=== PATIENT | female | born 1985 | race African-American/Black ===

== ENCOUNTER 2016-05-31 08:46 | Emergency (ER) | payer BC ==
--- NOTE | 2016-05-31 09:55 | ER Document Report ---
ED GI/ - General Chief Complaint: Pelvic Pain Stated Complaint: URINARY ISSUES/BACK PAIN Mode of Arrival: Ambulatory Information source: Patient Notes: Patient complains of left flank pain for the past 2 weeks with dark-colored urine. Patient states that pain wraps around to the sides of her abdomen. Patient states that she had an STD check 2 days ago which was normal but she did test positive for bacterial vaginosis. Patient is currently taking Flagyl. Patient does complain of nausea but denies any vomiting. Patient also complains of pressure with voiding. TRAVEL OUTSIDE OF THE [place] IN LAST 30 DAYS: No - HPI Patient complains to provider of: Flank pain, Pelvic pain Onset: Other - Flank pain 2 weeks, rating around to abdomen today Timing/Duration: Gradual Quality of pain: Achy Pain Level: 3 Location: Left flank Vaginal bleeding (Compared to normal period): None Sexual history: Active. denies: STD exposure Associated symptoms: Nausea, Other - Complains of pressure with voiding. denies : Diarrhea, Dizzy, Fever, Loss of appetite, Urinary hesitancy Exacerbated by: Movement Relieved by: Denies Similar symptoms previously: Yes Recently seen / treated by doctor: Yes - Related Data Allergies/Adverse Reactions: No Known Allergies Allergy (Verified 05/31/16 08:59) Past Medical History - General Information source: Patient Last Menstrual Period: 05/13/2016 - Social History Smoking Status: Never Smoker Chew tobacco use (# tins/day): No Frequency of alcohol use: Occasional Drug Abuse: None Occupation: food quality tester Family History: Hypertension Patient has suicidal ideation: No Patient has homicidal ideation: No - Medical History Medical History: Negative Pulmonary Medical History: Reports: Hx Asthma - with Renal/ Medical History: Denies: Hx Peritoneal Dialysis Past Surgical History: Reports: Hx Orthopedic Surgery - right ankle - Immunizations Immunizations up to date: Yes Hx Diphtheria, Pertussis, Tetanus Vaccination: No - unknown Review of Systems - Review of Systems Constitutional: Recent illness - Recently treated for bacterial vaginosis. denies: Fever EENT: No symptoms reported Cardiovascular: No symptoms reported. denies: Chest pain Respiratory: No symptoms reported. denies: Cough, Short of breath Gastrointestinal: Abdominal pain, Nausea. denies: Diarrhea, Vomiting Genitourinary: Dysuria - Pressure with voiding, Flank pain - Left flank Female Genitourinary: No symptoms reported Musculoskeletal: Back pain Skin: No symptoms reported Hematologic/Lymphatic: No symptoms reported Neurological/Psychological: No symptoms reported Physical Exam - Vital signs Vitals: Temp Pulse Resp BP Pulse Ox 98.1 F 57 L 20 132/85 H 98 05/31/16 08:55 05/31/16 08:55 05/31/16 08:55 05/31/16 08:55 05/31/16 08:55 - General General appearance: Appears well, Alert In distress: None Notes: Morbidly obese - HEENT Head: Normocephalic, Atraumatic Eyes: Normal Nasal: Normal Mouth/Lips: Normal Mucous membranes: Normal Neck: Normal, Supple - Respiratory Respiratory status: No respiratory distress Chest status: Nontender Breath sounds: Normal. No: Rales, Rhonchi, Stridor, Wheezing Chest palpation: Normal - Cardiovascular Rhythm: Regular Heart sounds: S1 appreciated, S2 appreciated Murmur: No - Abdominal Inspection: Morbidly Obese Distension: No distension Bowel sounds: Normal Tenderness: Nontender - Back Back: Tender - Lower lumbar paraspinal tenderness. No: CVA tenderness, Vertebra tenderness - Extremities General upper extremity: Normal inspection, Normal strength General lower extremity: Normal inspection, Normal strength - Neurological Neuro grossly intact: Yes Cognition: Normal [place] Coma Scale Eye Opening: Spontaneous [place] Coma Scale Verbal: Oriented [place] Coma Scale Motor: Obeys Commands [place] Coma Scale Total: 15 - Psychological Associated symptoms: Normal affect, Normal mood - Skin Skin Temperature: Warm Skin Moisture: Dry Skin Color: Normal Course - Vital Signs Vital signs: Temp Pulse Resp BP Pulse Ox 98.2 F 58 L 18 143/79 H 100 05/31/16 12:45 05/31/16 12:45 05/31/16 12:45 05/31/16 12:45 05/31/16 12:45 - Laboratory Result Diagrams: 05/31/16 09:57 05/31/16 09:57 Laboratory results interpreted by me: 05/31/16 11:14 Ur Leukocyte Esterase TRACE H Labs- Last Values WBC 8.8 10^3/uL (4.0-10.5) 05/31/16 09:57 RBC 4.49 10^6/uL (3.72-5.28) 05/31/16 09:57 Hgb 13.0 g/dL (12.0-15.5) 05/31/16 09:57 Hct 39.9 % (36.0-47.0) 05/31/16 09:57 MCV 89 fl (80-97) 05/31/16 09:57 MCH 29.0 pg (27.0-33.4) 05/31/16 09:57 MCHC 32.6 g/dL (32.0-36.0) 05/31/16 09:57 RDW 13.9 % (11.5-14.0) 05/31/16 09:57 Plt Count 270 10^3/uL (150-450) 05/31/16 09:57 Seg Neutrophils % 63.5 % (42-78) 05/31/16 09:57 Lymphocytes % 26.6 % (13-45) 05/31/16 09:57 Monocytes % 8.2 % (3-13) 05/31/16 09:57 Eosinophils % 1.5 % (0-6) 05/31/16 09:57 Basophils % 0.2 % (0-2) 05/31/16 09:57 Absolute Neutrophils 5.6 10^3/uL (1.7-8.2) 05/31/16 09:57 Absolute Lymphocytes 2.3 10^3/uL (0.5-4.7) 05/31/16 09:57 Absolute Monocytes 0.7 10^3/uL (0.1-1.4) 05/31/16 09:57 Absolute Eosinophils 0.1 10^3/uL (0.0-0.6) 05/31/16 09:57 Absolute Basophils 0.0 10^3/uL (0.0-0.2) 05/31/16 09:57 Sodium 140.6 mmol/L (137-145) 05/31/16 09:57 Potassium 4.4 mmol/L (3.6-5.0) 05/31/16 09:57 Chloride 102 mmol/L (98-107) 05/31/16 09:57 Carbon Dioxide 30 mmol/L (22-30) 05/31/16 09:57 Anion Gap 9 (5-19) 05/31/16 09:57 BUN 12 mg/dL (7-20) 05/31/16 09:57 Creatinine 0.94 mg/dL (0.52-1.25) 05/31/16 09:57 Est GFR ( Amer) > 60 (>60) 05/31/16 09:57 Est GFR (Non-Af Amer) > 60 (>60) 05/31/16 09:57 Glucose 97 mg/dL (75-110) 05/31/16 09:57 Calcium 9.1 mg/dL (8.4-10.2) 05/31/16 09:57 Total Bilirubin 0.5 mg/dL (0.2-1.3) 05/31/16 09:57 Direct Bilirubin 0.0 mg/dL (0.0-0.3) 05/31/16 09:57 AST 15 U/L (14-36) 05/31/16 09:57 ALT 28 U/L (9-52) 05/31/16 09:57 Alkaline Phosphatase 59 U/L (38-126) 05/31/16 09:57 Total Protein 7.4 g/dL (6.3-8.2) 05/31/16 09:57 Albumin 3.5 g/dL (3.5-5.0) 05/31/16 09:57 Serum HCG, Qual NEGATIVE (NEGATIVE) 05/31/16 09:57 Urine Color YELLOW 05/31/16 11:14 Urine Appearance CLEAR 05/31/16 11:14 Urine pH 6.0 (5.0-9.0) 05/31/16 11:14 Ur Specific [place] 1.011 05/31/16 11:14 Urine Protein NEGATIVE mg/dL (NEGATIVE) 05/31/16 11:14 Urine Glucose (UA) NEGATIVE mg/dL (NEGATIVE) 05/31/16 11:14 Urine Ketones NEGATIVE mg/dL (NEGATIVE) 05/31/16 11:14 Urine Blood NEGATIVE (NEGATIVE) 05/31/16 11:14 Urine Nitrite NEGATIVE (NEGATIVE) 05/31/16 11:14 Urine Bilirubin NEGATIVE (NEGATIVE) 05/31/16 11:14 Urine Urobilinogen NEGATIVE mg/dL (<2.0) 05/31/16 11:14 Ur Leukocyte Esterase TRACE (NEGATIVE) H 05/31/16 11:14 Squamous Epi Cells Auto 1 /HPF 05/31/16 11:14 Urine Mucus (Auto) RARE /LPF 05/31/16 11:14 Urine Ascorbic Acid NEGATIVE (NEGATIVE) 05/31/16 11:14 05/31/16 19:40 Discharge - Discharge Clinical Impression: Urinary symptom or sign Low back pain Qualifiers: Chronicity: acute Back pain laterality: bilateral Sciatica presence: without sciatica Qualified Code(s): M54.5 - Low back pain Condition: Stable Disposition: HOME, SELF-CARE Instructions: Low Back Pain ([facility]), Urinary Tract Infection ([facility]), Warm Packs ( [facility]), Antibiotic Therapy ([facility]), Pelvic Pain ([facility]) Additional Instructions: Return immediately for any new or worsening symptoms Followup with your primary care provider, call tomorrow to make a followup appointment Prescriptions: Hydrocodone/Acetaminophen [Bunch 5-325 Tablet] 1 each PO Q4 PRN #8 tablet PRN Reason: Ondansetron HCl [Zofran 4 mg Tablet] 1 - 2 tab PO Q6 PRN #15 tablet PRN Reason: Sulfamethoxazole/Trimethoprim [Bactrim Ds Tablet] 1 each PO BID #10 tablet Forms: Return to Work Referrals: [facility] [Provider Group] - Follow up as needed
[2016-05-31 10:22] LABS: ABSOLUTE EOSINOPHILS # (AUTO) 0.1 10^3/uL (0.0-0.6); ABSOLUTE LYMPHOCYTES (AUTO) 2.3 10^3/uL (0.5-4.7); ABSOLUTE MONOCYTES (AUTO) 0.7 10^3/uL (0.1-1.4); ABSOLUTE NEUT (AUTO) 5.6 10^3/uL (1.7-8.2); BASOPHILS % (AUTO) 0.2 % (0-2); EOSINOPHILS % (AUTO) 1.5 % (0-6); HEMATOCRIT 39.9 % (36.0-47.0); HGB HCT DIFFERENCE -0.9; LYMPHOCYTES % (AUTO) 26.6 % (13-45); MEAN CORPUSCULAR HGB CONC 32.6 g/dL (32.0-36.0); MEAN CORPUSCULAR VOLUME 89 fl (80-97); MONOCYTES % (AUTO) 8.2 % (3-13); RED BLOOD COUNT 4.49 10^6/uL (3.72-5.28); RED CELL DISTRIBUTION WIDTH 13.9 % (11.5-14.0); SEGMENTED NEUTROPHILS % (AUTO) 63.5 % (42-78); WHITE BLOOD COUNT 8.8 10^3/uL (4.0-10.5)
[2016-05-31 10:42] LABS: ALANINE AMINOTRANSFERASE 28 U/L (9-52); ALBUMIN 3.5 g/dL (3.5-5.0); ALKALINE PHOSPHATASE 59 U/L (38-126); ANION GAP 9 (5-19); ASPARTATE AMINO TRANSFERASE 15 U/L (14-36); BILIRUBIN,TOTAL 0.5 mg/dL (0.2-1.3); BLOOD UREA NITROGEN 12 mg/dL (7-20); CALCIUM 9.1 mg/dL (8.4-10.2); CARBON DIOXIDE 30 mmol/L (22-30); CHLORIDE 102 mmol/L (98-107); CREATININE RESULT 0.94 mg/dL (0.52-1.25); GLUCOSE 97 mg/dL (75-110); POTASSIUM 4.4 mmol/L (3.6-5.0); SODIUM 140.6 mmol/L (137-145); TOTAL PROTEIN 7.4 g/dL (6.3-8.2)
[2016-05-31 11:41] LABS: APPEARANCE,URINE CLEAR; BILIRUBIN,URINE NEGATIVE (NEGATIVE); GLUCOSE, URINE NEGATIVE (NEGATIVE); KETONES,URINE NEGATIVE (NEGATIVE); LEUKOCYTE ESTERASE,URINE TRACE (NEGATIVE); NITRITE,URINE NEGATIVE (NEGATIVE); PROTEIN,URINE NEGATIVE (NEGATIVE); URINE SPECIFIC GRAVITY 1.011; UROBILINOGEN,URINE NEGATIVE mg/dL (<2.0)
[2016-05-31 12:46] VITALS: BP 143/79
== END 2016-05-31 12:46 | disposition home or self-care (01) ==
LOC: ER 08:46
DX: R82.99 Other abnormal findings in urine (principal); M54.5 Low back pain; R10.2 Pelvic and perineal pain; R11.0 Nausea
CPT/HCPCS: 36415; 80053; 81001; 84703; 85025; 99284

== ENCOUNTER 2016-07-20 06:46 | Emergency (ER) | payer BC ==
[2016-07-20] MEDS ORDERED: ACETAMINOPHEN 325 MG TABLET PO ONE (08:16)
--- NOTE | 2016-07-20 08:18 | ER Document Report ---
ED General - General Chief Complaint: Abdominal Cramping Stated Complaint: HEADACHE Mode of Arrival: Ambulatory Information source: Patient Notes: 31-year-old female 6 para 2 proximally 6 weeks presents with bilateral pelvic cramping sensation without any bleeding. Patient has not had a confirmed ultrasound. Denies any nausea vomiting admits to frontal headache of 2 day duration not associated with any nausea or vomiting. Patient admits feels mildly dizzy when the headache occurs. Patient has not taken anything for the headache denies this being the worse headache of her life TRAVEL OUTSIDE OF THE [place] IN LAST 30 DAYS: No - HPI Onset: Other Onset/Duration: Intermittent Quality of pain: Achy, Cramping Severity: Mild Pain Level: 1 Associated symptoms: Headache Exacerbated by: Denies Relieved by: Denies Similar symptoms previously: No Recently seen / treated by doctor: No - Related Data Allergies/Adverse Reactions: No Known Allergies Allergy (Verified 07/20/16 07:14) Past Medical History - Social History Smoking Status: Never Smoker Cigarette use (# per day): No Chew tobacco use (# tins/day): No Smoking Education Provided: No Frequency of alcohol use: Occasional Drug Abuse: None Family History: Hypertension Patient has suicidal ideation: No Patient has homicidal ideation: No Pulmonary Medical History: Reports: Hx Asthma - with Renal/ Medical History: Denies: Hx Peritoneal Dialysis Past Surgical History: Reports: Hx Orthopedic Surgery - right ankle - Immunizations Immunizations up to date: Yes Hx Diphtheria, Pertussis, Tetanus Vaccination: No - unknown Review of Systems - Review of Systems Notes: REVIEW OF SYSTEMS: CONSTITUTIONAL : Denies fever, chills, or sweats. Denies recent illness. EENT: Denies eye, ear, throat, or mouth pain or symptoms. Denies nasal or sinus congestion or discharge. Denies throat, tongue, or mouth swelling or difficulty swallowing. CARDIOVASCULAR: Denies chest pain. Denies palpitations or racing or irregular heart beat. Denies ankle edema. RESPIRATORY: Denies cough, cold, or chest congestion. Denies shortness of breath, difficulty breathing, or wheezing. GASTROINTESTINAL: Denies abdominal pain or distention. Denies nausea, vomiting , or diarrhea. Denies blood in vomitus, stools, or per rectum. Denies black, tarry stools. Denies constipation. GENITOURINARY: Denies difficulty urinating, painful urination, burning, frequency, blood in urine, or discharge. FEMALE GENITOURINARY: Denies vaginal bleeding, heavy or abnormal periods, irregular periods. Denies vaginal discharge or odor. Admits to pelvic cramping MUSCULOSKELETAL: Denies back or neck pain or stiffness. Denies joint pain or swelling. SKIN: Denies rash, lesions or sores. HEMATOLOGIC : Denies easy bruising or bleeding. LYMPHATIC: Denies swollen, enlarged glands. NEUROLOGICAL: Admits to headache PSYCHIATRIC: Denies anxiety or stress. Denies depression, suicidal ideation, or homicidal ideation. ALL OTHER SYSTEMS REVIEWED AND NEGATIVE. Dictation was performed using [place] voice recognition software PHYSICAL EXAMINATION: GENERAL: Well-appearing, well-nourished and in no acute distress. HEAD: Atraumatic, normocephalic. EYES: Pupils equal round and reactive to light, extraocular movements intact, conjunctiva are normal. ENT: Nares patent, oropharynx clear without exudates. Moist mucous membranes. NECK: Normal range of motion, supple without lymphadenopathy LUNGS: Breath sounds clear to auscultation bilaterally and equal. No wheezes rales or rhonchi. HEART: Regular rate and rhythm without murmurs ABDOMEN: Soft, nontender, nondistended abdomen. No guarding, no rebound. No masses appreciated. Female : deferred Musculoskeletal: Normal range of motion, no pitting or edema. No cyanosis. NEUROLOGICAL: Cranial nerves grossly intact. Normal speech, normal gait. Normal sensory, motor exams PSYCH: Normal mood, normal affect. SKIN: Warm, Dry, normal turgor, no rashes or lesions noted. Physical Exam - Vital signs Vitals: Temp Pulse Resp BP Pulse Ox 98.4 F 66 16 138/64 H 100 07/20/16 07:03 07/20/16 07:03 07/20/16 07:03 07/20/16 07:03 07/20/16 07:03 Course - Re-evaluation Re-evalutation: 07/20/16 08:18 Patient will be sent for an ultrasound, is otherwise well-appearing no distress. A hCG Quant has been ordered as well for reevaluation purposes 07/20/16 12:01 Ultrasound is consistent with a 6 week . Patient will be discharged to follow-up with her own [employer] otherwise stable for discharge After performing a Medical Screening Examination, I estimate there is LOW risk for ACUTE APPENDICITIS, BOWEL OBSTRUCTION, ACUTE CHOLECYSTITIS, PERFORATED DIVERTICULITIS, INCARCERATED HERNIA, PANCREATITIS, PELVIC INFLAMMATORY DISEASE, PERFORATED ULCER, ECTOPIC , or TUBO-OVARIAN ABSCESS, thus I consider the discharge disposition reasonable. Also, there is no evidence or peritonitis , sepsis, or toxicity. The patient and I have discussed the diagnosis and risks , and we agree with discharging home with close follow-up with the understanding that symptoms and presentations can change. We also discussed returning to the Emergency Department immediately if new or worsening symptoms occur. We have discussed the symptoms which are most concerning (e.g., bloody stool, fever, changing or worsening pain, vomiting) that necessitate immediate return. - Vital Signs Vital signs: Temp Pulse Resp BP Pulse Ox 98.4 F 66 16 138/64 H 100 07/20/16 07:03 07/20/16 07:03 07/20/16 07:03 07/20/16 07:03 07/20/16 07:03 - Laboratory Laboratory results interpreted by me: 07/20/16 08:25 Beta HCG, Quant 24812.00 H - Diagnostic Test Radiology reviewed: Image reviewed, Reports reviewed Discharge - Discharge Clinical Impression: Pelvic pain affecting Headache Qualifiers: Headache type: unspecified Headache chronicity pattern: acute headache Intractability: not intractable Qualified Code(s): R51 - Headache Condition: Stable Disposition: HOME, SELF-CARE Instructions: Headache ([facility]) Referrals: JACQUES ZEPEDA MD [Primary Care Provider] - Follow up in 3-5 days
[2016-07-20 08:26] LABS: APPEARANCE,URINE CLEAR; BILIRUBIN,URINE NEGATIVE (NEGATIVE); GLUCOSE, URINE NEGATIVE (NEGATIVE); KETONES,URINE NEGATIVE (NEGATIVE); LEUKOCYTE ESTERASE,URINE NEGATIVE (NEGATIVE); NITRITE,URINE NEGATIVE (NEGATIVE); PROTEIN,URINE NEGATIVE (NEGATIVE); UROBILINOGEN,URINE NEGATIVE mg/dL (<2.0)
[2016-07-20 12:14] VITALS: BP 149/64
== END 2016-07-20 12:18 | disposition home or self-care (01) ==
LOC: ER 06:46
DX: R10.2 Pelvic and perineal pain (principal); R51 Headache; R10.9 Unspecified abdominal pain; R42 Dizziness and giddiness; Z3A.01 Less than 8 weeks gestation of pregnancy
CPT/HCPCS: 36415; 76817; 81001; 84702; 99284

== ENCOUNTER 2016-09-12 06:26 | Emergency (ER) | payer BC, MEDICAID ==
[2016-09-12] MEDS ORDERED: NORMAL SALINE 1000 ML 1,000 ML IV ONE (06:39)
--- NOTE | 2016-09-12 07:14 | ER Document Report ---
ED General - General Chief Complaint: Vag Bleeding, +preg <12wks Stated Complaint: CRAMPING AND VAGINAL BLEEDING 13 WKS Time Seen by Provider: 09/12/16 06:39 TRAVEL OUTSIDE OF THE [place] IN LAST 30 DAYS: No - HPI Patient complains to provider of: vaginal bleeding positive Notes: Patient states she is approximately 3 months coming in for vaginal bleeding. Patient states spotting last week increased spotting today. Patient is currently on Flagyl for bacterial infection we'll seen. Patient also states abdominal cramping. Patient is a G6 P 2 with one miscarriage and 2 . Patient denies any fevers chills nausea vomiting diarrhea - Related Data Allergies/Adverse Reactions: No Known Allergies Allergy (Verified 07/20/16 07:14) Past Medical History - Social History Smoking Status: Unknown if Ever Smoked Chew tobacco use (# tins/day): No Family History: Hypertension Patient has suicidal ideation: No Patient has homicidal ideation: No Pulmonary Medical History: Reports: Hx Asthma - with Renal/ Medical History: Denies: Hx Peritoneal Dialysis Past Surgical History: Reports: Hx Orthopedic Surgery - right ankle - Immunizations Immunizations up to date: Yes Hx Diphtheria, Pertussis, Tetanus Vaccination: No - unknown Review of Systems - Review of Systems Constitutional: No symptoms reported EENT: No symptoms reported Cardiovascular: No symptoms reported Respiratory: No symptoms reported Gastrointestinal: No symptoms reported Genitourinary: No symptoms reported Female Genitourinary: Vaginal bleeding Musculoskeletal: No symptoms reported Skin: No symptoms reported Hematologic/Lymphatic: No symptoms reported Neurological/Psychological: No symptoms reported -: Yes All other systems reviewed and negative Physical Exam - Vital signs Vitals: Temp Pulse Resp BP Pulse Ox 98.3 F 78 18 133/72 H 99 09/12/16 06:30 09/12/16 06:30 09/12/16 06:30 09/12/16 06:30 09/12/16 06:30 Interpretation: Normal - General General appearance: Appears well, Alert - HEENT Head: Normocephalic, Atraumatic Eyes: Normal Pupils: PERRL - Respiratory Respiratory status: No respiratory distress Chest status: Nontender Breath sounds: Normal Chest palpation: Normal - Cardiovascular Rhythm: Regular Heart sounds: Normal auscultation Murmur: No - Abdominal Inspection: Normal Distension: No distension Bowel sounds: Normal Tenderness: Nontender Organomegaly: No organomegaly - Back Back: Normal, Nontender - Extremities General upper extremity: Normal inspection, Nontender, Normal color, Normal ROM , Normal temperature General lower extremity: Normal inspection, Nontender, Normal color, Normal ROM , Normal temperature, Normal weight bearing. No: Lilliam's sign - Neurological Neuro grossly intact: Yes Cognition: Normal Orientation: AAOx4 [place] Coma Scale Eye Opening: Spontaneous [place] Coma Scale Verbal: Oriented [place] Coma Scale Motor: Obeys Commands [place] Coma Scale Total: 15 Speech: Normal Motor strength normal: LUE, RUE, LLE, RLE Sensory: Normal - Psychological Associated symptoms: Normal affect, Normal mood - Skin Skin Temperature: Warm Skin Moisture: Dry Skin Color: Normal Course - Re-evaluation Re-evalutation: 09/12/16 14:23 Patient's ultrasound shows IUP with a heart rate of 151. Patient will be discharged home follow-up with [facility]. Patient will be given paperwork to have a repeat beta hCG - Vital Signs Vital signs: Temp Pulse Resp BP Pulse Ox 98.1 F 73 16 144/82 H 100 09/12/16 11:42 09/12/16 11:42 09/12/16 11:42 09/12/16 11:42 09/12/16 11:42 - Laboratory Result Diagrams: 09/12/16 07:04 09/12/16 07:04 Laboratory results interpreted by me: 09/12/16 07:04 Glucose 111 H Albumin 3.4 L Beta HCG, Quant 60624.00 H Discharge - Discharge Clinical Impression: Vaginal bleeding in Qualifiers: Trimester: first trimester Qualified Code(s): O46.91 - Antepartum hemorrhage, unspecified, first trimester Condition: Good Disposition: HOME, SELF-CARE Instructions: Threatened Miscarriage ([facility]), Bleeding During Early ( [facility]) Additional Instructions: Your labwork today and ultrasound showed a normal . It is concerning that your bleeding. This may lead to miscarriage however at this time everything looks to be okay. I would highly recommend following up with your OB /AIRLINE DISPATCHER. You will need to have your blood redrawn in 48-72 hours. You may go to the outpatient laboratory testing area to have this performed. Forms: Follow-Up Laboratory Testing, Return to Work Referrals: ERWIN MOORE MD [Primary Care Provider] - Follow up as needed
[2016-09-12 07:22] LABS: ABSOLUTE BASOPHILS # (AUTO) 0.1 10^3/uL (0.0-0.2); ABSOLUTE EOSINOPHILS # (AUTO) 0.1 10^3/uL (0.0-0.6); ABSOLUTE LYMPHOCYTES (AUTO) 2.4 10^3/uL (0.5-4.7); ABSOLUTE MONOCYTES (AUTO) 0.6 10^3/uL (0.1-1.4); BASOPHILS % (AUTO) 0.8 % (0-2); EOSINOPHILS % (AUTO) 0.6 % (0-6); HEMATOCRIT 36.7 % (36.0-47.0); HEMOGLOBIN 12.1 g/dL (12.0-15.5); HGB HCT DIFFERENCE -0.4; LYMPHOCYTES % (AUTO) 23.9 % (13-45); MEAN CORPUSCULAR HEMOGLOBIN 29.4 pg (27.0-33.4); MEAN CORPUSCULAR HGB CONC 33.1 g/dL (32.0-36.0); MEAN CORPUSCULAR VOLUME 89 fl (80-97); MONOCYTES % (AUTO) 5.9 % (3-13); RED BLOOD COUNT 4.14 10^6/uL (3.72-5.28); RED CELL DISTRIBUTION WIDTH 13.7 % (11.5-14.0); SEGMENTED NEUTROPHILS % (AUTO) 68.8 % (42-78); WHITE BLOOD COUNT 10.2 10^3/uL (4.0-10.5)
[2016-09-12 07:35] LABS: ALANINE AMINOTRANSFERASE 34 U/L (9-52); ALBUMIN 3.4 g/dL (3.5-5.0); ALKALINE PHOSPHATASE 49 U/L (38-126); ANION GAP 9 (5-19); ASPARTATE AMINO TRANSFERASE 27 U/L (14-36); BILIRUBIN,DIRECT 0.2 mg/dL (0.0-0.4); BILIRUBIN,TOTAL 0.4 mg/dL (0.2-1.3); BLOOD UREA NITROGEN 9 mg/dL (7-20); CALCIUM 8.5 mg/dL (8.4-10.2); CARBON DIOXIDE 26 mmol/L (22-30); CHLORIDE 103 mmol/L (98-107); CREATININE RESULT 0.66 mg/dL (0.52-1.25); GLUCOSE 111 mg/dL (75-110); LIPASE 58.8 U/L (23-300); POTASSIUM 4.1 mmol/L (3.6-5.0); SODIUM 137.5 mmol/L (137-145); TOTAL PROTEIN 6.8 g/dL (6.3-8.2)
[2016-09-12 07:44] LABS: APPEARANCE,URINE SLIGHTLY-CLOUDY; BILIRUBIN,URINE NEGATIVE (NEGATIVE); GLUCOSE, URINE NEGATIVE (NEGATIVE); KETONES,URINE NEGATIVE (NEGATIVE); LEUKOCYTE ESTERASE,URINE NEGATIVE (NEGATIVE); NITRITE,URINE NEGATIVE (NEGATIVE); PROTEIN,URINE NEGATIVE (NEGATIVE); URINE SPECIFIC GRAVITY 1.024; UROBILINOGEN,URINE NEGATIVE mg/dL (<2.0)
[2016-09-12 11:54] VITALS: BP 144/82
== END 2016-09-12 11:45 | disposition home or self-care (01) ==
LOC: ER 06:26
DX: O46.91 Antepartum hemorrhage, unspecified, first trimester (principal); Z3A.12 12 weeks gestation of pregnancy
CPT/HCPCS: 99284; 96360; 86900; 86901; 36415; 84702; 83690; 85025; 80053; 81001; 76801; 93976; J7030

== ENCOUNTER 2016-10-15 06:20 | Emergency (ER) | payer BC, MEDICAID ==
--- NOTE | 2016-10-15 07:15 | ER Document Report ---
ED General - General Mode of Arrival: Ambulatory Information source: Patient TRAVEL OUTSIDE OF THE [place] IN LAST 30 DAYS: No - General Chief Complaint: Insect Bite Stated Complaint: INSECT BITE Time Seen by Provider: 10/15/16 07:03 Notes: Patient is a 31-year-old, 18 week , A2 M1, female presenting to the emergency department this morning concerned because she began hyperventilating when she arrived at work. Patient states she has no idea why she became short of breath and hyperventilating. Patient also states that she was bitten yesterday on her right foot while she was at the pool. Patient states that it caused her foot and leg to swell, but it has improved today. Patient also complains of tenderness and itching emergency bite area (LISA MARTINEZ) - Related Data Allergies/Adverse Reactions: No Known Allergies Allergy (Verified 07/20/16 07:14) Past Medical History - General Information source: Patient - Social History Smoking Status: Never Smoker Family History: Reviewed & Not Pertinent, Hypertension Patient has suicidal ideation: No Patient has homicidal ideation: No Pulmonary Medical History: Reports: Hx Asthma - with Past Surgical History: Reports: Hx Orthopedic Surgery - right ankle - Immunizations Immunizations up to date: Yes Hx Diphtheria, Pertussis, Tetanus Vaccination: No - unknown Review of Systems - Review of Systems Constitutional: No symptoms reported EENT: No symptoms reported Cardiovascular: No symptoms reported Respiratory: See HPI, Short of breath - "hyperventilation" Gastrointestinal: No symptoms reported Genitourinary: No symptoms reported Female Genitourinary: No symptoms reported Musculoskeletal: No symptoms reported Skin: See HPI, Other - "Bug Bite" Hematologic/Lymphatic: No symptoms reported Neurological/Psychological: No symptoms reported -: Yes All other systems reviewed and negative Physical Exam - General General appearance: Appears well, Alert - HEENT Head: Normocephalic, Atraumatic Eyes: Normal Pupils: PERRL - Respiratory Respiratory status: No respiratory distress Chest status: Nontender Breath sounds: Normal Chest palpation: Normal - Cardiovascular Rhythm: Regular Heart sounds: Normal auscultation Murmur: No - Abdominal Inspection: Gravid female, Morbidly Obese Tenderness: Nontender - Back Back: Normal, Nontender - Extremities General upper extremity: Normal inspection, Nontender Foot: Tender - Small tender area right dorsal foot which is raised, tender, and erythematous. - Neurological Neuro grossly intact: Yes Cognition: Normal Orientation: AAOx4 Genoveva Coma Scale Eye Opening: Spontaneous [place] Coma Scale Verbal: Oriented [place] Coma Scale Motor: Obeys Commands [place] Coma Scale Total: 15 Speech: Normal - Psychological Associated symptoms: Normal affect, Normal mood - Skin Skin Temperature: Warm Skin Moisture: Dry Skin Color: Other - See foot exam - Vital signs Vitals: Temp Pulse Resp BP Pulse Ox 98.1 F 80 16 134/73 H 98 10/15/16 06:31 10/15/16 06:31 10/15/16 06:31 10/15/16 06:31 10/15/16 06:31 Discharge - Discharge Clinical Impression: Hyperventilation Insect bite Qualifiers: Encounter type: initial encounter Qualified Code(s): W57.XXXA - Bitten or stung by nonvenomous insect and other nonvenomous arthropods, initial encounter Additional Instructions: Insect Sting: You've been stung by an insect. The venom can cause pain, redness, and swelling. Right after the sting, we sometimes use adrenaline to reduce the reaction to the venom. This also stops any allergic reaction. You should apply cold compresses, rest and elevate the affected part, and take antihistamines. A more severe, itchy red swelling sometimes develops the next day. This is a local allergic reaction to the venom. This local allergy isn't dangerous. We treat it with cortisone-type medicine and antihistamines. Sometimes we use antibiotics if we're worried about infection. If you develop a fever, chills, a red streak, or swollen glands in the area of the bite, infection may be starting. Return at once. Insect stings from the bee and hornet family may cause a severe allergic reaction. Symptoms include hoarseness, shortness of breath, general redness of the skin, general itching, or lightheadedness. If any of these symptoms occur, you'll be treated with adrenalin and cortisone-like steroids. You should carry an "Anaphylaxis Kit" with you in the summer months so you can administer these medications to yourself before getting emergency medical care. Hyperventilation: You MAY have had an episode of hyperventilation. The symptoms occur because rapid breathing changes the body's chemical balance. Hyperventilation causes dizziness, numbness (particularly of the hands and face), chest pain, muscle spasms, and anxiety. Once an episode begins, it's extremely difficult to control the "need" to breathe rapidly. Hyperventilation may be provoked by drug effects, nausea, or illness, but is often due to anxiety. If no specific cause for the problem was found, treatment for anxiety may be necessary. Once the chemical changes have occurred, the hyperventilation is likely to recur. If you feel the symptoms again, rebreathe your air with a paper bag for several minutes. Sometimes hyperventilation is a symptom of an underlying metabolic or lung problem. If new symptoms develop (such as productive cough, fever, or chest pain), or if you are unable to get relief with rebreathing your exhaled air, call the physician. TRY BENADRYL CREAM ON THE FOOT FOR ITCHING. FOLLOW UP WITH YOUR DOCTOR IF ANY SIGNS OF INFECTION. RETURN TO THE EMERGENCY ROOM IF ANY NEW OR WORSENING SYMPTOMS. Scribe Attestation: 10/15/16 07:17 I personally performed the services described in the documentation, reviewed and edited the documentation which was dictated to the scribe in my presence, and it accurately records my words and actions. (JONATHAN CORREA)
[2016-10-15 07:28] VITALS: BP 131/88
== END 2016-10-15 07:29 | disposition home or self-care (01) ==
LOC: ER 06:20
DX: O26.892 Other specified pregnancy related conditions, second trimester (principal); R06.4 Hyperventilation; O9A.212 Injury, poisoning and certain other consequences of external causes complicating pregnancy, second trimester; S90.861A Insect bite (nonvenomous), right foot, initial encounter; W57.XXXA Bitten or stung by nonvenomous insect and other nonvenomous arthropods, initial encounter; Z3A.18 18 weeks gestation of pregnancy
CPT/HCPCS: 99282

== ENCOUNTER 2016-10-27 09:31 | Emergency (ER) | payer BC, MEDICAID ==
[2016-10-27] MEDS ORDERED: ALBUTEROL SULFATE 0.083% NEB 2.5 MG/3 ML AMPUL NEB SCH (10:15)
--- NOTE | 2016-10-27 10:19 | ER Document Report ---
ED Respiratory Problem - General Chief Complaint: Sore Throat Stated Complaint: COLD SYMPTOMS Time Seen by Provider: 10/27/16 09:48 Mode of Arrival: Ambulatory Information source: Patient Notes: 31 year old female presents to ED for sore throat itchy eyes sore ears cough congestion dry mouth for about a week. She is 20 weeks and has been told she has proteinuria gestational diabetes and elevated blood pressure with this . She has a history of 6 para 2 1 miscarriage and 2 abortions. She also has a history of asthma when . TRAVEL OUTSIDE OF THE [place] IN LAST 30 DAYS: No - HPI Patient complains to provider of: Asthma, Short of breath Onset: Last week Duration: Continuous Initiating Event: URI Quality of pain: Achy Severity: Moderate Pain Level: 3 Context: Hx asthma Short of Breath: Mild Cough: Nonproductive Sputum amount: None Associated symptoms: Congestion, Cough, PND, Sinus pain/pressure. denies: Fever Similar symptoms previously: Yes Recently seen / treated by doctor: No - Related Data Allergies/Adverse Reactions: No Known Allergies Allergy (Verified 10/27/16 09:36) Past Medical History - General Information source: Patient - Social History Smoking Status: Never Smoker Cigarette use (# per day): No Chew tobacco use (# tins/day): No Smoking Education Provided: No Frequency of alcohol use: None Drug Abuse: None Lives with: Alone Family History: Arthritis, COPD, CVA, DM, Hyperlipidemia, Hypertension, Malignancy Patient has suicidal ideation: No Patient has homicidal ideation: No - Past Medical History Cardiac Medical History: Reports: Hx Hypertension Pulmonary Medical History: Reports: Hx Asthma - with EENT Medical History: Reports: None Endocrine Medical History: Reports: Hx Diabetes Mellitus Type 2 - gestational Renal/ Medical History: Reports: None Malignancy Medical History: Reports: None GI Medical History: Reports: None Musculoskeltal Medical History: Reports Hx Musculoskeletal Trauma Skin Medical History: Reports None Psychiatric Medical History: Reports: None Traumatic Medical History: Reports: Hx Fractures Infectious Medical History: Reports: None Past Surgical History: Reports: Hx Orthopedic Surgery - right ankle - Immunizations Immunizations up to date: Yes Hx Diphtheria, Pertussis, Tetanus Vaccination: No - unknown Review of Systems - Review of Systems Constitutional: Recent illness EENT: Nose discharge, Sinus discharge, Throat pain Cardiovascular: No symptoms reported Respiratory: Cough, Short of breath, Wheezing Gastrointestinal: No symptoms reported Genitourinary: No symptoms reported Female Genitourinary: No symptoms reported Musculoskeletal: No symptoms reported Skin: No symptoms reported Hematologic/Lymphatic: No symptoms reported Neurological/Psychological: No symptoms reported -: Yes All other systems reviewed and negative Physical Exam - Vital signs Vitals: Temp Pulse Resp BP Pulse Ox 98.3 F 98 20 112/74 99 10/27/16 09:36 10/27/16 09:36 10/27/16 09:36 10/27/16 09:36 10/27/16 09:36 Interpretation: Normal - General General appearance: Appears well, Alert - HEENT Head: Normocephalic, Atraumatic Eyes: Normal Pupils: PERRL Ears: Normal External canal: Normal Tympanic membrane: Normal Sinus: Normal Nasal: Purulent discharge, Swelling Mouth/Lips: Normal Mucous membranes: Normal Pharynx: Erythema, Post nasal drainage Neck: Normal - Respiratory Respiratory status: No respiratory distress Chest status: Nontender Breath sounds: Decreased air movement, Nonproductive cough Chest palpation: Normal - Cardiovascular Rhythm: Regular Heart sounds: Normal auscultation Murmur: No - Abdominal Inspection: Normal Distension: No distension Bowel sounds: Normal Tenderness: Nontender Organomegaly: No organomegaly - Back Back: Normal, Nontender - Extremities General upper extremity: Normal inspection, Nontender, Normal color, Normal ROM , Normal temperature General lower extremity: Normal inspection, Nontender, Normal color, Normal ROM , Normal temperature, Normal weight bearing. No: Lilliam's sign - Neurological Neuro grossly intact: Yes Cognition: Normal Orientation: AAOx4 Gen[place] Coma Scale Eye Opening: Spontaneous [place] Coma Scale Verbal: Oriented [place] Coma Scale Motor: Obeys Commands Genove[place] Coma Scale Total: 15 Speech: Normal Motor strength normal: LUE, RUE, LLE, RLE Sensory: Normal - Psychological Associated symptoms: Normal affect, Normal mood - Skin Skin Temperature: Warm Skin Moisture: Dry Skin Color: Normal Course - Re-evaluation Re-evalutation: 10/27/16 12:14 Dr. Lakhani concerning the patient's status at 20 weeks with the bronchospasms. She said the let patient know to follow-up or Wednesday at the [facility]. Patient was discharged home with albuterol inhaler after receiving albuterol and Atrovent in the emergency room. Lungs are now clear and patient states feels much better. - Vital Signs Vital signs: Temp Pulse Resp BP Pulse Ox 98.3 F 98 20 112/74 99 10/27/16 09:36 10/27/16 09:36 10/27/16 09:36 10/27/16 09:36 10/27/16 09:36 - Laboratory Laboratory results interpreted by me: 10/27/16 10:27 Urine Ascorbic Acid 40 H - Diagnostic Test Radiology reviewed: Image reviewed, Reports reviewed Discharge - Discharge Clinical Impression: URI (upper respiratory infection) Qualifiers: URI type: unspecified URI Qualified Code(s): J06.9 - Acute upper respiratory infection, unspecified Condition: Stable Disposition: HOME, SELF-CARE Additional Instructions: UPPER RESPIRATORY ILLNESS: You have a viral infection of the respiratory passages -- a "cold." This common infection causes nasal congestion, drainage, and often sore throat and cough. It is highly contagious. The disease usually lasts about 10 to 14 days. There is no "cure" for the viral infection -- it must run its course. If there is a complication, such as bacterial infection in the nose, sinuses, middle ear, or bronchial tubes, antibiotics may be required. The antibiotics won't affect the virus. Drink plenty of fluids. A humidifier may help. An expectorant medication or decongestant may make you more comfortable. Use acetaminophen or ibuprofen for fever or aches. See the doctor if fever persists over two days, if there is any significant worsening of your symptoms, or if you simply fail to improve as expected. BRONCHOSPASM: You have tightness in the bronchial tubes, called bronchospasm. This often occurs with bronchial infections. Allergies, inhaled chemicals, and polluted or cold air can also provoke bronchospasm. It's more likely in patients with asthma in the family. Emergency treatment of bronchospasm may include adrenaline shots or bronchodilator aerosol. You may feel lightheaded and have a rapid pulse for an hour or two. Rest and get plenty of fluids. At home, we'll treat you with a bronchodilator inhaler. Antibiotics and corticosteroids may be required for some patients. Until you recover, avoid chemical fumes, dusts, pollens, and exercising in very cold or dry air. If you smoke, stop now!! If you develop a fever, increased wheezing, chest pain, or severe shortness of breath, you should contact the doctor immediately. COUGH-SUPPRESSANT & EXPECTORANT MEDICATION: You are to use a cough medication as needed for relief of symptoms. This medicine is a combination of an expectorant (to make the mucous thinner and more easily "coughed up") and a cough suppressant (to reduce the frequency of coughing). The cough-suppressant medicine is related to narcotics. You may experience mild nausea and sleepiness. Some patients who are very sensitive to narcotics may have stomach pain from this medicine. Taking the medicine with food reduces these side effects. Do not drive or work with machinery until you know how this medicine affects you. The expectorant should have no side effects. Iodine-containing expectorants (such as organidin) should not be taken by persons with active thyroid disease unless approved by your doctor. Call the doctor if you develop shortness of breath, hives, rash, itching, lightheadedness, or severe nausea and vomiting. INHALED BRONCHODILATORS: You have received a treatment of and/or prescription for an inhaled bronchodilator -- a medication which stimulates the airways in the lung to dilate. This improves the flow of air in asthma, bronchitis, and emphysema. These medicines have some similarity to adrenaline, and can cause similar side effects: shakiness, racing heart, and a sense of nervousness. These side effects decrease with time. Contact your doctor if these side effects are severe. Do not over-use the medicine. Too-frequent use of the inhaler may make it ineffective. Call your doctor if the inhaler is not controlling your symptoms at the prescribed doses. USE OF ACETAMINOPHEN (Tylenol): Acetaminophen may be taken for pain relief or fever control. It's much safer than aspirin, offering a wider range of "safe" dosages. It is safe during . Some brand names are Tylenol, Panadol, Datril, Anacin 3, Tempra, and Liquiprin. Acetaminophen can be repeated every four hours. The following are maximum recommended dosages: >89 pounds or adults 650 mg to 900 mg Acetaminophen can be repeated every four hours. Maximum dose not to exceed 4000 mg a day. FOLLOW-UP CARE: If you have been referred to a physician for follow-up care, call the physician s office for an appointment as you were instructed or within the next two days. If you experience worsening or a significant change in your symptoms, notify the physician immediately or return to the Emergency Department at any time for re-evaluation. Prescriptions: Albuterol Sulfate [Proair HFA Inhalation Aerosol 8.5 gm MDI] 2 puff IH Q4H PRN # 1 mdi PRN Reason:
[2016-10-27 10:45] LABS: APPEARANCE,URINE CLEAR; BILIRUBIN,URINE NEGATIVE (NEGATIVE); GLUCOSE, URINE NEGATIVE (NEGATIVE); KETONES,URINE NEGATIVE (NEGATIVE); LEUKOCYTE ESTERASE,URINE NEGATIVE (NEGATIVE); NITRITE,URINE NEGATIVE (NEGATIVE); PROTEIN,URINE NEGATIVE (NEGATIVE); URINE SPECIFIC GRAVITY 1.021; UROBILINOGEN,URINE NEGATIVE mg/dL (<2.0)
[2016-10-27] MEDS ORDERED: IPRATROPIUM BROMIDE 0.02% NEB 0.5 MG/2.5 ML AMPUL NEB ONE (11:11)
--- NOTE | 2016-10-27 11:20 | RADIOLOGY REPORT (SQ) ---
EXAM DESCRIPTION: CHEST PA/LAT COMPLETED DATE/TIME: 10/27/2016 11:09 am REASON FOR STUDY: cough congestion COMPARISON: Two-view chest 04/07/2011 EXAM PARAMETERS: NUMBER OF VIEWS: two views TECHNIQUE: Digital Frontal and Lateral radiographic views of the chest acquired. RADIATION DOSE: NA LIMITATIONS: none FINDINGS: LUNGS AND PLEURA: No opacities, masses or pneumothorax. No pleural effusion. MEDIASTINUM AND HILAR STRUCTURES: No masses or contour abnormalities. HEART AND VASCULAR STRUCTURES: Heart normal size. No evidence for failure. BONES: No acute findings. HARDWARE: None in the chest. OTHER: No other significant finding. IMPRESSION: NO SIGNIFICANT RADIOGRAPHIC FINDING IN THE CHEST. TECHNICAL DOCUMENTATION: JOB ID: [id number] [employer]- All Rights Reserved
[2016-10-27 12:45] VITALS: BP 130/66
== END 2016-10-27 12:46 | disposition home or self-care (01) ==
LOC: ER 09:31
DX: O26.92 Pregnancy related conditions, unspecified, second trimester (principal); J06.9 Acute upper respiratory infection, unspecified; O24.419 Gestational diabetes mellitus in pregnancy, unspecified control; O14.92 Unspecified pre-eclampsia, second trimester; Z3A.20 20 weeks gestation of pregnancy
CPT/HCPCS: 94640; 99283; 87070; 87880; 82962; 81001; 71020; J3490

== ENCOUNTER 2016-11-11 15:43 | Outpatient (CLI) | payer BC, MEDICAID ==
[2016-11-11] MEDS ORDERED: RINGERS SOLUTION,LACTATED 1,000 ML IV ONE (16:04)
[2016-11-11] MEDS ORDERED: RINGERS SOLUTION,LACTATED 1,000 ML IV PRN (16:04)
[2016-11-11 16:38] LABS: ABSOLUTE BASOPHILS # (AUTO) 0.1 10^3/uL (0.0-0.2); ABSOLUTE EOSINOPHILS # (AUTO) 0.1 10^3/uL (0.0-0.6); ABSOLUTE LYMPHOCYTES (AUTO) 2.4 10^3/uL (0.5-4.7); ABSOLUTE MONOCYTES (AUTO) 0.8 10^3/uL (0.1-1.4); ABSOLUTE NEUT (AUTO) 8.4 10^3/uL (1.7-8.2); BASOPHILS % (AUTO) 0.6 % (0-2); EOSINOPHILS % (AUTO) 0.6 % (0-6); HEMATOCRIT 34.4 % (36.0-47.0); HEMOGLOBIN 11.2 g/dL (12.0-15.5); HGB HCT DIFFERENCE -0.8; LYMPHOCYTES % (AUTO) 20.3 % (13-45); MEAN CORPUSCULAR HEMOGLOBIN 28.7 pg (27.0-33.4); MEAN CORPUSCULAR HGB CONC 32.4 g/dL (32.0-36.0); MEAN CORPUSCULAR VOLUME 89 fl (80-97); MONOCYTES % (AUTO) 7.2 % (3-13); RED BLOOD COUNT 3.88 10^6/uL (3.72-5.28); RED CELL DISTRIBUTION WIDTH 13.7 % (11.5-14.0); SEGMENTED NEUTROPHILS % (AUTO) 71.3 % (42-78); WHITE BLOOD COUNT 11.7 10^3/uL (4.0-10.5)
[2016-11-11 16:55] LABS: ALANINE AMINOTRANSFERASE 35 U/L (9-52); ALBUMIN 3.7 g/dL (3.5-5.0); ALKALINE PHOSPHATASE 74 U/L (38-126); ANION GAP 10 (5-19); ASPARTATE AMINO TRANSFERASE 20 U/L (14-36); BILIRUBIN,DIRECT 0.3 mg/dL (0.0-0.4); BILIRUBIN,TOTAL 0.3 mg/dL (0.2-1.3); BLOOD UREA NITROGEN 10 mg/dL (7-20); CALCIUM 9.1 mg/dL (8.4-10.2); CARBON DIOXIDE 23 mmol/L (22-30); CHLORIDE 104 mmol/L (98-107); CREATININE RESULT 0.73 mg/dL (0.52-1.25); GLUCOSE 80 mg/dL (75-110); LDH 331 U/L (313-618); TOTAL PROTEIN 7.3 g/dL (6.3-8.2); URIC ACID 4.2 mg/dL (2.5-6.2)
[2016-11-11] MEDS ORDERED: ACETAMINOPHEN 325 MG TABLET ONE (17:19)
[2016-11-11 18:30] LABS: APPEARANCE,URINE CLEAR; BILIRUBIN,URINE NEGATIVE (NEGATIVE); GLUCOSE, URINE NEGATIVE (NEGATIVE); KETONES,URINE 80 mg/dL (NEGATIVE); LEUKOCYTE ESTERASE,URINE NEGATIVE (NEGATIVE); NITRITE,URINE NEGATIVE (NEGATIVE); PROTEIN,URINE NEGATIVE (NEGATIVE); URINE SPECIFIC GRAVITY 1.018; UROBILINOGEN,URINE NEGATIVE mg/dL (<2.0)
[2016-11-11 18:48] LABS: URINE BARBITURATES SCREEN NEGATIVE; URINE METHADONE SCREEN NEGATIVE; URINE PHENCYCLIDINE SCREEN NEGATIVE
[2016-11-11 18:52] LABS: URINE CREATININE 144.4 mg/dL (16-327); URINE PROTEIN 7.7 mg/dL (<12)
[2016-11-11 18:54] LABS: URINE OPIATES LOW UNCONFIRMED POSITIVE
== END 2016-11-11 18:45 | disposition home or self-care (01) ==
LOC: LC 15:43
PROVIDERS: ATTEND Student in an Organized Health Care Education/Training Program
DX: O26.892 Other specified pregnancy related conditions, second trimester (principal); E86.0 Dehydration; Z3A.22 22 weeks gestation of pregnancy
CPT/HCPCS: 36415; 80053; 80307; 81001; 82570; 83615; 84156; 84550; 85025

== ENCOUNTER → 2016-12-07 | Outpatient (CLI) | payer BC, MEDICAID ==
[2016-12-07 11:53] LABS: HEMATOCRIT 34.9 % (36.0-47.0); HEMOGLOBIN 11.7 g/dL (12.0-15.5); HGB HCT DIFFERENCE 0.2; MEAN CORPUSCULAR HEMOGLOBIN 29.7 pg (27.0-33.4); MEAN CORPUSCULAR HGB CONC 33.6 g/dL (32.0-36.0); MEAN CORPUSCULAR VOLUME 88 fl (80-97); RED BLOOD COUNT 3.95 10^6/uL (3.72-5.28); RED CELL DISTRIBUTION WIDTH 14.1 % (11.5-14.0); WHITE BLOOD COUNT 9.7 10^3/uL (4.0-10.5)
[2016-12-07 12:09] LABS: ASPARTATE AMINO TRANSFERASE 16 U/L (14-36); CREATININE RESULT 0.65 mg/dL (0.52-1.25); LDH 326 U/L (313-618); URIC ACID 4.3 mg/dL (2.5-6.2)
[2016-12-07 13:04] LABS: URINE CREATININE 74.9 mg/dL (16-327)
== END ==
LOC: OD 11:02
PROVIDERS: ATTEND Registered Nurse Women's Health Care, Ambulatory
DX: O14.90 Unspecified pre-eclampsia, unspecified trimester (principal)
CPT/HCPCS: 36415; 82565; 82570; 83615; 84156; 84450; 84550; 85027

== ENCOUNTER 2017-01-07 10:17 | Outpatient (CLI) | payer BC, MEDICAID ==
--- NOTE | 2017-01-07 11:50 | RADIOLOGY REPORT (SQ) ---
EXAM DESCRIPTION: U/S OB LIMITED COMPLETED DATE/TIME: 01/07/2017 11:39 am REASON FOR STUDY: IUP 30 wks pressure for cervical length COMPARISON: OB ultrasound 07/20/2016 TECHNIQUE: Limited transabdominal and endovaginal grayscale ultrasound for evaluation of specific re quested obstetrical parameters. LIMITATIONS: None. FINDINGS: CERVICAL LENGTH: 5.3 cm Closed. FHR: 162 beats per minute. PRESENTATION: Cephalic. OTHER: No other significant findings. IMPRESSION: LIMITED OBSTETRICAL ULTRASOUND WITH MEASURED PARAMETERS DELINEATED ABOVE. Trimester of : Third trimester - 28 weeks to delivery. TECHNICAL DOCUMENTATION: JOB ID: [id number] [employer]- All Rights Reserved
== END 2017-01-07 12:43 | disposition home or self-care (01) ==
LOC: LC 10:17
PROVIDERS: ATTEND Obstetrics & Gynecology
PROC: 4A1HXCZ Monitoring of Products of Conception, Cardiac Rate, External Approach (ICD-10-PCS; principal; 2017-01-07)
DX: O47.03 False labor before 37 completed weeks of gestation, third trimester (principal); Z3A.30 30 weeks gestation of pregnancy
CPT/HCPCS: 76815

== ENCOUNTER 2017-02-04 11:10 | Outpatient (CLI) | payer BC, MEDICAID ==
[2017-02-04] MEDS ORDERED: ONDANSETRON 4 MG TAB.RAPDIS PO ONE (11:13)
[2017-02-04] MEDS ORDERED: ONDANSETRON 4 MG TAB.RAPDIS ONE (11:20)
== END 2017-02-04 12:14 | disposition home or self-care (01) ==
LOC: LC 11:10
PROVIDERS: ATTEND Obstetrics & Gynecology
DX: O21.0 Mild hyperemesis gravidarum (principal); Z3A.34 34 weeks gestation of pregnancy
CPT/HCPCS: 59025; S0119

== ENCOUNTER 2017-02-08 09:34 | Outpatient (CLI) | payer BC, MEDICAID ==
--- NOTE | 2017-02-08 09:41 | Non Stress Test Report ---
Non Stress Test Datetime Report Generated by CPN: 02/08/2017 09:41 DEMOGRAPHIC Test Number: 1 EGA NST: 34.1 INDICATION Indication for Study: Ordered by Provider MONITORING Monitor Explained: Monitor Explained; Test Explained; Patient Verbalized Understanding Time on Monitor: 02/04/2017 11:20 Time off Monitor: 02/04/2017 12:10 NST Duration: 50 NST INTERVENTIONS NST Interventions: PO Hydration Physician Notified NST: Howard BABY A: [id number] BABY A Movement : Present Contraction Frequency : 0 FHR Baseline : 145 Accelerations : 15X15 Decelerations : None Variability : Moderate 6-25bpm NST Review: Meets Criteria for Reactive NST NST Review and Verified By : Timmy Olmedo RN NST Results: Reactive NST REPORT Report Trigger: Send Report
--- NOTE | 2017-02-08 11:08 | Non Stress Test Report ---
Non Stress Test Datetime Report Generated by CPN: 02/08/2017 11:07 DEMOGRAPHIC EGA NST: 34.5 VITAL SIGNS Temperature - NST: 98.1 Pulse - NST: 90 RESP - NST: 18 NBPSYS NST: 123 NBPDIA NST: 73 MONITORING Monitor Explained: Monitor Explained; Test Explained; Patient Verbalized Understanding Time on Monitor: 02/08/2017 09:52 Time off Monitor: 02/08/2017 11:00 NST Duration: 68 NST INTERVENTIONS NST Interventions: PO Hydration; Reposition Patient Physician Notified NST: J Solis CNM REVIEWED STRIP BABY A Movement : Present Contraction Frequency : x1 Accelerations : 15X15 Decelerations : None Variability : Moderate 6-25bpm NST Review: Meets Criteria for Reactive NST NST Review and Verified By : LETICIA BARCENAS, RN NST Results: Reactive NST REPORT Report Trigger: Send Report
== END 2017-02-08 11:03 | disposition home or self-care (01) ==
LOC: LC 09:34
PROVIDERS: ATTEND Obstetrics & Gynecology
DX: O47.9 False labor, unspecified (principal)
CPT/HCPCS: 59025

== ENCOUNTER → 2017-02-15 | Outpatient (CLI) | payer BC, MEDICAID ==
[2017-02-15 10:23] LABS: ABSOLUTE EOSINOPHILS # (AUTO) 0.1 10^3/uL (0.0-0.6); ABSOLUTE LYMPHOCYTES (AUTO) 2.4 10^3/uL (0.5-4.7); ABSOLUTE MONOCYTES (AUTO) 0.8 10^3/uL (0.1-1.4); ABSOLUTE NEUT (AUTO) 6.5 10^3/uL (1.7-8.2); BASOPHILS % (AUTO) 0.5 % (0-2); EOSINOPHILS % (AUTO) 0.9 % (0-6); HEMATOCRIT 32.9 % (36.0-47.0); HEMOGLOBIN 10.9 g/dL (12.0-15.5); HGB HCT DIFFERENCE -0.2; LYMPHOCYTES % (AUTO) 24.3 % (13-45); MEAN CORPUSCULAR HEMOGLOBIN 27.7 pg (27.0-33.4); MEAN CORPUSCULAR VOLUME 84 fl (80-97); MONOCYTES % (AUTO) 8.3 % (3-13); RED BLOOD COUNT 3.92 10^6/uL (3.72-5.28); RED CELL DISTRIBUTION WIDTH 14.9 % (11.5-14.0); WHITE BLOOD COUNT 9.8 10^3/uL (4.0-10.5)
[2017-02-15 10:52] LABS: ASPARTATE AMINO TRANSFERASE 17 U/L (14-36); CREATININE RESULT 0.66 mg/dL (0.52-1.25); LDH 329 U/L (313-618); URIC ACID 3.9 mg/dL (2.5-6.2)
== END ==
LOC: OD 09:42
PROVIDERS: ATTEND Obstetrics & Gynecology
DX: O16.9 Unspecified maternal hypertension, unspecified trimester (principal); R51 Headache
CPT/HCPCS: 36415; 82565; 83615; 84450; 84550; 85025

== ENCOUNTER 2017-02-18 16:01 | Outpatient (CLI) | payer BC, MEDICAID ==
--- NOTE | 2017-02-18 16:55 | Non Stress Test Report ---
Non Stress Test Datetime Report Generated by CPN: 02/18/2017 16:55 DEMOGRAPHIC EGA NST: 36.1 INDICATION Indication for Study: Ordered by Provider MONITORING Monitor Explained: Monitor Explained; Test Explained; Patient Verbalized Understanding Time on Monitor: 02/18/2017 16:17 Time off Monitor: 02/18/2017 16:46 NST Duration: 29 NST INTERVENTIONS NST Interventions: PO Hydration Physician Notified NST: J. Solis CNM BABY A: [id number] BABY A Movement : Present Contraction Frequency : 0 FHR Baseline : 135 Accelerations : 15X15 Decelerations : None Variability : Moderate 6-25bpm NST Review: Meets Criteria for Reactive NST NST Review and Verified By : V Monk RN NST Results: Reactive NST REPORT Report Trigger: Send Report
== END 2017-02-18 16:55 | disposition home or self-care (01) ==
LOC: LC 16:01
PROVIDERS: ATTEND Obstetrics & Gynecology
PROC: 4A1HXCZ Monitoring of Products of Conception, Cardiac Rate, External Approach (ICD-10-PCS; principal; 2017-02-18)
DX: Z34.93 Encounter for supervision of normal pregnancy, unspecified, third trimester (principal)
CPT/HCPCS: 59025

== ENCOUNTER 2017-03-08 09:47 | Inpatient (IN) | payer BC, MEDICAID ==
[2017-03-08 10:27] LABS: APPEARANCE,URINE CLOUDY; BILIRUBIN,URINE NEGATIVE (NEGATIVE); GLUCOSE, URINE NEGATIVE (NEGATIVE); KETONES,URINE TRACE mg/dL (NEGATIVE); LEUKOCYTE ESTERASE,URINE LARGE (NEGATIVE); NITRITE,URINE NEGATIVE (NEGATIVE); PROTEIN,URINE 30 mg/dL (NEGATIVE); URINE SPECIFIC GRAVITY 1.014; UROBILINOGEN,URINE NEGATIVE mg/dL (<2.0)
[2017-03-08 10:32] LABS: AMNISURE (ROM) NEGATIVE (NEGATIVE)
[2017-03-08 10:46] LABS: URINE BARBITURATES SCREEN NEGATIVE; URINE METHADONE SCREEN NEGATIVE; URINE OPIATES LOW NEGATIVE; URINE PHENCYCLIDINE SCREEN NEGATIVE
[2017-03-08] MEDS ORDERED: PENICILLIN G POTASSIUM 5,000,000 UNIT in DEXTROSE 5%-WATER 100 ML IV ONE (12:34)
[2017-03-08] MEDS ORDERED: OXYTOCIN/NORMAL SALINE 20 UNIT/1,000 ML RTUINJ IV PRN (12:34)
[2017-03-08] MEDS ORDERED: RINGERS SOLUTION,LACTATED 300 ML IV ONE (12:34)
[2017-03-08] MEDS ORDERED: DINOPROSTONE 10 MG VAGINAL INSERT.SR ONE (13:21)
[2017-03-08 13:31] LABS: ABSOLUTE EOSINOPHILS # (AUTO) 0.1 10^3/uL (0.0-0.6); ABSOLUTE LYMPHOCYTES (AUTO) 1.6 10^3/uL (0.5-4.7); ABSOLUTE MONOCYTES (AUTO) 0.7 10^3/uL (0.1-1.4); ABSOLUTE NEUT (AUTO) 6.4 10^3/uL (1.7-8.2); BASOPHILS % (AUTO) 0.5 % (0-2); EOSINOPHILS % (AUTO) 0.8 % (0-6); HEMOGLOBIN 10.7 g/dL (12.0-15.5); HGB HCT DIFFERENCE 0.1; LYMPHOCYTES % (AUTO) 18.5 % (13-45); MEAN CORPUSCULAR HEMOGLOBIN 27.8 pg (27.0-33.4); MEAN CORPUSCULAR HGB CONC 33.6 g/dL (32.0-36.0); MEAN CORPUSCULAR VOLUME 83 fl (80-97); MONOCYTES % (AUTO) 8.4 % (3-13); RED BLOOD COUNT 3.87 10^6/uL (3.72-5.28); SEGMENTED NEUTROPHILS % (AUTO) 71.8 % (42-78); WHITE BLOOD COUNT 8.9 10^3/uL (4.0-10.5)
[2017-03-08] MEDS: DINOPROSTONE 10 MG VAGINAL INSERT.SR PV PRN (13:31)
[2017-03-08] MEDS: RINGERS SOLUTION,LACTATED 1,000 ML IV PRN (13:32)
[2017-03-08 13:49] LABS: ALANINE AMINOTRANSFERASE 31 U/L (9-52); ALKALINE PHOSPHATASE 168 U/L (38-126); ANION GAP 9 (5-19); ASPARTATE AMINO TRANSFERASE 17 U/L (14-36); BILIRUBIN,DIRECT 0.2 mg/dL (0.0-0.4); BILIRUBIN,TOTAL 0.4 mg/dL (0.2-1.3); BLOOD UREA NITROGEN 5 mg/dL (7-20); CARBON DIOXIDE 25 mmol/L (22-30); CHLORIDE 106 mmol/L (98-107); CREATININE RESULT 0.61 mg/dL (0.52-1.25); GLUCOSE 93 mg/dL (75-110); LDH 305 U/L (313-618); POTASSIUM 4.3 mmol/L (3.6-5.0); SODIUM 140.3 mmol/L (137-145); TOTAL PROTEIN 6.1 g/dL (6.3-8.2); URIC ACID 4.2 mg/dL (2.5-6.2)
[2017-03-08] MEDS ORDERED: PENICILLIN G-K 5 MILLION UNIT VIAL IV ONE (14:00)
[2017-03-08] MEDS ORDERED: PENICILLIN G POTASSIUM 2,500,000 UNIT in DEXTROSE 5%-WATER 50 ML IV SCH (16:35)
[2017-03-08] MEDS ORDERED: PENICILLIN G-K 5 MILLION UNIT VIAL IV SCH (18:00)
[2017-03-08] MEDS ORDERED: ZOLPIDEM TARTRATE 5 MG TABLET PO ONE (21:37)
[2017-03-08] MEDS ORDERED: ZOLPIDEM TARTRATE 5 MG TABLET ONE (22:58)
[2017-03-09] MEDS ORDERED: MISOPROSTOL 0.1 MG TABLET ONE ×2 (01:07→05:12)
[2017-03-09] MEDS: RINGERS SOLUTION,LACTATED 1,000 ML IV PRN ×3 (01:11→06:36)
[2017-03-09] MEDS ORDERED: MISOPROSTOL 0.1 MG TABLET PO PRN (01:30)
[2017-03-09] MEDS: DINOPROSTONE 10 MG VAGINAL INSERT.SR PV PRN (01:40)
[2017-03-09] MEDS ORDERED: ONDANSETRON HCL INJ/PF 4 MG/2 ML SDV IV ONE (02:06)
[2017-03-09] MEDS ORDERED: NALBUPHINE HCL INJ 10 MG/1 ML AMPULE INJ ONE (04:54)
[2017-03-09] MEDS ORDERED: PROMETHAZINE HCL INJ 25 MG/1 ML VIAL IV ONE (04:54)
[2017-03-09] MEDS ORDERED: NALBUPHINE HCL INJ 10 MG/1 ML AMPULE ONE (04:58)
[2017-03-09] MEDS ORDERED: PROMETHAZINE HCL INJ 25 MG/1 ML VIAL ONE (04:58)
[2017-03-09] MEDS ORDERED: PENICILLIN G-K 5 MILLION UNIT VIAL ONE (05:47)
[2017-03-09] MEDS ORDERED: MISOPROSTOL 0.1 MG TABLET PO SCH (06:00)
[2017-03-09] MEDS ORDERED: MISOPROSTOL 0.2 MG TABLET ONE ×2 (06:13→07:59)
[2017-03-09] MEDS ORDERED: LIDOCAINE 1% INJ-PF (10 MG/ML) 30 ML SDV ONE ×2 (06:14→07:59)
[2017-03-09] MEDS ORDERED: OXYTOCIN/NORMAL SALINE 0 UNIT/0 ML RTUINJ ONE (06:14)
[2017-03-09] MEDS ORDERED: ONDANSETRON HCL INJ/PF 4 MG/2 ML SDV ONE (06:20)
[2017-03-09] MEDS ORDERED: OXYTOCIN/NORMAL SALINE 20 UNIT/1,000 ML RTUINJ ONE (07:59)
[2017-03-09] MEDS ORDERED: DIBUCAINE 1% OINTMENT 28 GM TP PRN (08:52)
[2017-03-09] MEDS ORDERED: GLYCERIN/WITCH HAZEL LEAF 1 EACH MED..PAD TP PRN (08:52)
[2017-03-09] MEDS ORDERED: MAGNESIUM HYDROXIDE SUSP 30 ML UDCUP PO PRN (08:52)
[2017-03-09] MEDS ORDERED: MEASLES,MUMPS&RUBELLA VACC/PF 0.5 ML VIAL SUBCUT PRN (08:52)
[2017-03-09] MEDS ORDERED: PROMETHAZINE HCL INJ 25 MG/1 ML VIAL IV PRN (08:52)
[2017-03-09] MEDS ORDERED: NA PHOS,M-B/NA PHOS,DI-BA (ADULT) 133 ML ENEMA PR PRN (08:52)
[2017-03-09] MEDS ORDERED: BENZOCAINE/MENTHOL AEROSOL SPRAY 56 ML TOP PRN (08:52)
[2017-03-09] MEDS ORDERED: OXYTOCIN/NORMAL SALINE 20 UNIT/1,000 ML RTUINJ IV PRN (08:52)
[2017-03-09] MEDS ORDERED: PROMETHAZINE HCL 25 MG TABLET PO PRN (08:52)
[2017-03-09] MEDS ORDERED: DIPHENHYDRAMINE HCL 25 MG CAPSULE PO PRN (08:52)
[2017-03-09] MEDS ORDERED: ACETAMINOPHEN 650 MG SUPP.RECT PR PRN (08:52)
[2017-03-09] MEDS ORDERED: PROMETHAZINE HCL 25 MG SUPP.RECT PR PRN (08:52)
[2017-03-09] MEDS ORDERED: DIPH/PERTUSS(ACELL)/TETANUS VAC/PF 0.5 ML SYR (>=10YO) IM PRN (08:52)
[2017-03-09] MEDS ORDERED: PSEUDOEPHEDRINE HCL 30 MG TABLET PO PRN (08:52)
--- NOTE | 2017-03-09 10:49 | Admission Physical ---
Datetime Report Generated by CPN: 03/09/2017 10:49 CURRENT ADMISSION Hx Assessment: The History has been Reviewed and is Current Chief Complaint: Other Chief Complaint Other: Sent from [facility] for nst, bpp 6, -2 for breathing movements Indication for Induction: Indicated by Testing Indication for Induction: Term, Intrauterine ; No Active Labor; Intact Membranes; Induction of Labor Admit Plan: Admit to Unit; Initiate Labor Induction Protocol ALLERGIES Medication Allergies: No Medication Allergies: No Known Allergies (03/08/2017) Medication Allergies: No Known Allergies (03/04/2017) Medication Allergies: No Known Allergies (02/18/2017) Medication Allergies: No Known Allergies (11/11/2016) Medication Allergies: No Known Allergies (10/27/2016) Latex: No Latex Allergies Food Allergies: denies Environmental Allergies: denies OBSTETRICAL HISTORY EDC: 03/17/2017 00:00 : 6 Para: 2 SAB: 1 IAB: 2 Livin Gestational Diabetes: Yes Rh Sensitization: No Incompetent Cervix: No JD: No Infertility: No ART Treatment: No Uterine Anomaly: No IUGR: No Hx Previous C/S: No Macrosomia: No Hx Loss/Stillborn: No PIH: No Hx : No Placenta Previa/Abruption: No Depression/PP Depression: No PTL/PROM: No Post Hemorrhage: No Current Procedures: Ultrasound Obstetrical History Comments: G1: 2001 EAB G2: 2003 EAB G3: 2003 9lbs 4oz G4: 2005 8 lbs 1 oz G5: 2015 SAB G6: 2016 current SEE RECORDS Alcohol: No Marijuana : No Cocaine: No Other Illicit Drugs: No Cigarettes: Never Smoker. [id number] MEDICAL HISTORY Diabetes: No Diabetes Type: Gestational Diabetes Blood Transfusion: No Pulmonary Disease (Asthma, TB): No Breast Disease: No Hypertension: No [employer] Surgery: No Heart Disease: No Hosp/Surgery: Yes Autoimmune Disorder: No Anesthetic Complications: No Kidney Disease: No Abnormal Pap Smear: Yes Neuro/Epilepsy: No Psychiatric Disorders: No Other Medical Diseases: No Hepatitis/Liver Disease: No Significant Family History: No Varicosities/Phlebitis: No Trauma/Violence : No Thyroid Dysfunction: No Medical History Comments: CHTN, proteinuria, right ankle surgery 2010, abnl pap 2000s INFECTIOUS HISTORY Gonorrhea: Yes Genital Herpes: No Chlamydia: Yes Tuberculosis: No Syphilis: No Hepatitis: No HIV/AIDS Exposure: No Rash or Viral Illness: No HPV: No Infectious History Comments: Gonorrhea, Chlamydia, Trich early 2000s PHYSICAL EXAM General: Normal HEENT: Normal Neurologic: Normal Thyroid: Deferred Heart: Normal Lungs: Normal Breast: Normal Back: Normal Abdomen: Normal Genitourinary Exam: Normal Extremities: Normal DTRs: Normal Pelvic Type: Adequate Physical Exam Comments: Morbidly obese, pelvis proven 9lbs 4 oz Vital Signs: Reviewed VAGINAL EXAM Dilatation: 1 Effacement: 20 Station: -3 Contraction Comments: rare MEMBRANES Membranes: Intact FETUS A EGA: 38.5 Monitoring: External US FHR- Baseline: 140 Variability: Moderate 6-25bpm Accelerations: Absent Decelerations: Variable FHR Category: Category II Estimated Weight (gm): 3800 Presentation: Vertex Admit Comment: NST non-reactive here, admit to L and D Hx: morbid obesity, type 2 dm vs. early gdm, on glyburide, non-compliant GBS +, pcn Cervidil for cervical ripening See record for complete medical/surgical hx PLANS FOR LABOR AND DELIVERY Labor and Delivery: None Pain Management: Epidural Feeding Preference: Formula Benefit of Breast Feed Discussed: Yes Circumcision: Yes INFORMED CONSENT Assignment: Jonathan Romero DO Signature: with User ID: [email or web address] : with User ID: [id number]
--- NOTE | 2017-03-09 10:57 | Delivery Summary ---
Del Sum A-C Datetime Report Generated by CPN: 03/09/2017 10:57 DELIVERY PERSONNEL DELIVERY PERSONNEL: [id number] Delivery Doctor:: Neetu Gould CNM Labor and Delivery Nurse:: Ginny Conway RN Labor and Delivery Nurse:: JUSTIN Merritt [employer]ident Response Specialist/[employer] WORKER: Lola BONNY Breaux II MATERNAL INFORMATION Delivery Anesthesia: None Medications After Delivery: Pitocin Bolus-Please Comment; Pitocin Drip 20 Units/1000ml NSS Estimated Blood Loss (ml): 200 Maternal Complications: Precipitous Labor (<3hrs) Provider Comments: care assumed of this 32yo female at 38w6d here for IOL due to CHTN and GDM. Pt. had one dose of antibiotics for pos. GBS and has an unknown time for SROM (somewhere around [phone] per RN). Pt. was complete and ready to push upon my arrival to [facility]. Pt. pushed x2 and went on to deliver a viable baby boy through nuchal and body cord. Baby to maternal abdomen and vigorous respiratory effort and cry with tactile stimulation. Cord allowed to stop pulsating, doubly clamped and then cut by pt (3vc noted and cord blood obtained). Placenta delivered spontaneously intact, fundus firm at u-2 large amount of blood and several small clots out. In and out catheter inserted and _200ml of urine out. Bleeding stable. Vaginal and perineal inspection revealed no lacerations. Nursery in room evaluating baby and mother remains in room stable. LABOR SUMMARY EDC: 03/17/2017 00:00 No. Babies in Womb: 1 Attempted: No Labor Anesthesia: IV Sedation LABOR INFORMATION Reason for Induction: Chronic Hypertension; Maternal Diabetes Reason for Induction- Other: Proteinuria, BPP 6/10 Onset of Labor: 03/09/2017 07:30 Complete Dilatation: 03/09/2017 07:59 Cervical Ripening Agents: Cervidil; Cytotec @ Oxytocin: N/A Group B Beta Strep: Positive Antibiotics # of Doses: 1 Antibiotics Time of Last Dose: 0600 Name of Antibiotic Given: PCN Steroids Given: None Reason Steroids Not Administered: Not Applicable MEMBRANES Membranes Rupture Method: Spontaneous Rupture of Membranes: 03/09/2017 07:30 Length of Rupture (hr): 0.70 Amniotic Fluid Color: Clear Amniotic Fluid Amount: Scant Amniotic Fluid Odor: Normal STAGES OF LABOR Stage 1 hr: 0 Stage 1 min: 29 Stage 2 hr: 0 Stage 2 min: 13 Stage 3 hr: 0 Stage 3 min: 5 Total Time in Labor hr: 0 Total Time in Labor min: 47 VAGINAL DELIVERY Episiotomy: None Laceration #1: None Laceration Extension #1: N/A Laceration Repair: Not Applicable Sponge Count Correct: Yes Sharps Count Correct: Yes CSECTION DELIVERY Primary Indication: N/A Secondary Indication: N/A CSection Incidence: N/A Labor: N/A Elective: N/A CSection Incision: N/A BABY A INFORMATION Delivery Date/Time: 03/09/2017 08:12 Method of Delivery: Vaginal Born in Route : No : N/A Forceps: N/A Vacuum Extraction: N/A Shoulder Dystocia : No PRESENTATION/POSITION BABY A Presentation: Cephalic Cephalic Presentation: Vertex Vertex Position: OA Breech Presentation: N/A PLACENTA INFORMATION BABY A Placenta Delivery Time : 03/09/2017 08:17 Placenta Method of Delivery: Spontaneous Placenta Status: Delivered SCORES BABY A Heart Rate 1 min: >100 bpm Resp Effort 1 min: Good Cry Reflex Irritability 1 min: Cough or Sneeze or Pulls Away Muscle Tone 1 min: Active Motion Color 1 min: Blue/Pale Resuscitation Effort 1 min: Tactile Stimulation SCORE 1 MIN: 8 Heart Rate 5 min: >100 bpm Resp Effort 5 min: Good Cry Reflex Irritability 5 min: Cough or Sneeze or Pulls Away Muscle Tone 5 min: Active Motion Color 5 min: Blue/Pale Resuscitation Effort 5 min: Tactile Stimulation SCORE 5 MIN: 8 INFANT INFORMATION BABY A Gestational Age at Delivery: 38.6 Gestational Status: Early Term- 37- 38.6 Weeks Outcome : Liveborn Infant Condition : Stable Sex: Male IDENTIFICATION BABY A Infant Verification Date/Time: 03/09/2017 08:23 ID Band Number: [id number] Mother's Name Verified: Yes Infant RN Verifying : Timmy Maxwell RN Additional Verifying Personnel: Dr. Lakhani WEIGHT/LENGTH BABY A Infant Birthweight (gm): 3190 Infant Weight (lb): 7 Infant Weight (oz): 1 Length (in): 19.50 Infant Length (cm): 49.53 CORD INFORMATION BABY A No. Cord Vessels: 3 Nuchal Cord- Other: body cord, arm cord Cord Blood Taken: Yes-For Eval (Mom's Blood Type - or O+) Infant Suction: None ASSESSMENT BABY A Complications: None Physical Findings at Delivery: Within Normal Limits Respirations: Grunting Skin to Skin: Yes Skin to Skin Time (min): 60 Carbide Powder Processor/ALS Called : No Care By: Cale Torres RN Transferred To: Remains with Mother BABY B INFORMATION : N/A SIGNATURES Assignment: Roxana Lakhani MD Signature: with User ID: [email or web address] : with User ID: [email or web address]
[2017-03-09] MEDS: DOCUSATE SODIUM 100 MG CAPSULE PO SCH ×2 (11:21→18:14)
[2017-03-09] MEDS: SENNOSIDES/DOCUSATE 8.6-50 MG 1 EACH TABLET PO SCH (11:21)
[2017-03-09] MEDS: FAMOTIDINE 20 MG TABLET PO SCH ×2 (11:21→22:04)
[2017-03-09] MEDS: PRENATAL VITAMIN W-O CA NO5/FE FUMARATE/FA CAPSULE PO SCH (11:21)
[2017-03-09] MEDS: FERROUS SULFATE 325 MG TABLET PO SCH ×2 (11:21→18:14)
[2017-03-09] MEDS: IBUPROFEN 800 MG TABLET PO SCH ×2 (13:50→21:27)
[2017-03-09] MEDS: ACETAMINOPHEN WITH CODEINE #3 TABLET PO PRN (19:42)
[2017-03-10] MEDS: ACETAMINOPHEN WITH CODEINE #3 TABLET PO PRN (02:06)
[2017-03-10] MEDS: IBUPROFEN 800 MG TABLET PO SCH ×3 (05:16→21:21)
[2017-03-10 07:47] LABS: HEMATOCRIT 31.7 % (36.0-47.0); HEMOGLOBIN 10.4 g/dL (12.0-15.5); HGB HCT DIFFERENCE -0.5; MEAN CORPUSCULAR HEMOGLOBIN 27.3 pg (27.0-33.4); MEAN CORPUSCULAR HGB CONC 32.7 g/dL (32.0-36.0); MEAN CORPUSCULAR VOLUME 83 fl (80-97); RED CELL DISTRIBUTION WIDTH 15.1 % (11.5-14.0); WHITE BLOOD COUNT 12.8 10^3/uL (4.0-10.5)
[2017-03-10] MEDS: SENNOSIDES/DOCUSATE 8.6-50 MG 1 EACH TABLET PO SCH (09:37)
[2017-03-10] MEDS: PRENATAL VITAMIN W-O CA NO5/FE FUMARATE/FA CAPSULE PO SCH (09:37)
[2017-03-10] MEDS: FERROUS SULFATE 325 MG TABLET PO SCH ×2 (09:37→18:11)
[2017-03-10] MEDS: DOCUSATE SODIUM 100 MG CAPSULE PO SCH ×2 (09:38→18:11)
[2017-03-10] MEDS: FAMOTIDINE 20 MG TABLET PO SCH ×2 (09:38→21:21)
--- NOTE | 2017-03-10 10:59 | PDOC PROGRESS REPORT ---
Subjective-OB Subjective: Post Delivery Day: 32 year old. Denies any needs at this time Doing well, no c/o, feeling good, ambulating, voiding, bottle feeding Physical Exam (OB) Vital Signs: Temp Pulse Resp BP Pulse Ox 97.8 F 70 18 132/85 H 99 03/10/17 08:52 03/10/17 08:52 03/10/17 08:52 03/10/17 08:52 03/10/17 08:52 Intake & Output 03/09/17 03/10/17 03/11/17 06:59 06:59 06:59 Weight 137 kg - Lochia Lochia Amount: Small 10-25 ml Lochia Color: Rubra/Red - Abdomen Description: Soft, Round Hernia Present: No Fundal Description: Firm, Midline Fundal Height: u/u - u/2 Objective-Diagnostic Laboratory: 03/10/17 07:08 03/08/17 13:19 03/10/17 07:08 WBC 12.8 H RBC 3.80 Hgb 10.4 L Hct 31.7 L MCV 83 MCH 27.3 MCHC 32.7 RDW 15.1 H Plt Count 256 Assessment and Plan(PN) - Assessment and Plan (1) Gestational diabetes mellitus Qualifiers: Gestational diabetes mellitus control: oral hypoglycemic-controlled Trimester: first trimester Qualified Code(s): O24.415 - Gestational diabetes mellitus in , controlled by oral hypoglycemic drugs Is this a current diagnosis for this admission?: Yes (2) Obesity complicating Qualifiers: Trimester: first trimester Qualified Code(s): O99.211 - Obesity complicating , first trimester Is this a current diagnosis for this admission?: Yes (3) Normal vaginal delivery Is this a current diagnosis for this admission?: Yes (4) GBS (group B Streptococcus carrier), +RV culture, currently Is this a current diagnosis for this admission?: Yes - Time Spent with Patient Time with patient: Less than 15 minutes Smoking Education Provided: Over 3 minutes Medications reviewed and adjusted accordingly: Yes - Disposition Anticipated Discharge: Home Within: within 48 hours
[2017-03-11] MEDS ORDERED: ACETAMINOPHEN WITH CODEINE #3 TABLET PO PRN (01:04)
[2017-03-11] MEDS: IBUPROFEN 800 MG TABLET PO SCH (05:09)
[2017-03-11 08:35] VITALS: BP 139/78
[2017-03-11] MEDS: SENNOSIDES/DOCUSATE 8.6-50 MG 1 EACH TABLET PO SCH (09:51)
[2017-03-11] MEDS: PRENATAL VITAMIN W-O CA NO5/FE FUMARATE/FA CAPSULE PO SCH (09:51)
[2017-03-11] MEDS: FERROUS SULFATE 325 MG TABLET PO SCH (09:51)
[2017-03-11] MEDS: DOCUSATE SODIUM 100 MG CAPSULE PO SCH (09:52)
--- NOTE | 2017-03-11 11:03 | PDOC DISCHARGE SUMMARY ---
Final Diagnosis Discharge Date: 03/11/17 - Final Diagnosis (1) Gestational diabetes mellitus Is this a current diagnosis for this admission?: Yes (2) Normal vaginal delivery Is this a current diagnosis for this admission?: Yes (3) Obesity complicating Is this a current diagnosis for this admission?: Yes Discharge Data - Discharge Medication Home Medications: Albuterol Sulfate [Proair HFA Inhalation Aerosol 8.5 gm MDI] 2 puff IH Q4H PRN # 1 mdi 10/27/16 No122/Iron/Folic Acid [ Multi Tablet] 1 tab PO DAILY 11/11/16 Reason(s) for Admission: Induction of Labor, Obstetric Complications, Other [facility]mission Note[facility] Procedures: NST, Management of Obstetric Complications Intrapartum Procedure(s): Spontaneous Vaginal Delivery - Diagnosis Test Laboratory: Temp Pulse Resp BP Pulse Ox 98.1 F 68 20 139/78 H 100 03/11/17 09:37 03/11/17 09:37 03/11/17 09:37 03/11/17 09:37 03/11/17 09:37 03/08/17 03/08/17 03/10/17 10:03 13:19 07:08 RBC 3.87 3.80 Hgb 10.7 L 10.4 L Hct 32.0 L 31.7 L Urine Opiates Screen NEGATIVE - Discharge information/Instructions Discharge Activity: Balance Activity w/Rest, Pelvic Rest, No tub bath Discharge Diet: Regular Disposition: HOME, SELF-CARE Follow up with: [facility] in: 4, Weeks
[2017-03-11] MEDS: FAMOTIDINE 20 MG TABLET PO SCH (12:41)
== END 2017-03-11 14:06 | disposition home or self-care (01) | DRG 774 ==
LOC: LC 09:47 → LR 12:42 → 2S 03-09 10:43
PROVIDERS: ADMIT Obstetrics & Gynecology; ATTEND Obstetrics & Gynecology
PROC: 4A1HXCZ Monitoring of Products of Conception, Cardiac Rate, External Approach (ICD-10-PCS; 2017-03-08)
PROC: 10E0XZZ Delivery of Products of Conception, External Approach (ICD-10-PCS; principal; 2017-03-09)
PROC: 3E0P7GC Introduction of Other Therapeutic Substance into Female Reproductive, Via Natural or Artificial Opening (ICD-10-PCS; 2017-03-09)
DX: O24.425 Gestational diabetes mellitus in childbirth, controlled by oral hypoglycemic drugs (principal); O10.92 Unspecified pre-existing hypertension complicating childbirth; Z68.42 Body mass index [BMI] 45.0-49.9, adult; O99.214 Obesity complicating childbirth; E66.01 Morbid (severe) obesity due to excess calories; O99.824 Streptococcus B carrier state complicating childbirth; O62.3 Precipitate labor; O69.82X0 Labor and delivery complicated by other cord entanglement, without compression, not applicable or unspecified; Z28.21 Immunization not carried out because of patient refusal; Z91.19 Patient's noncompliance with other medical treatment and regimen; Z3A.38 38 weeks gestation of pregnancy; Z37.0 Single live birth
CPT/HCPCS: 36415; 59025; 80053; 80307; 81005; 82962; 83615; 84112; 84550; 85025; 85027; 86592; 86850; 86900; 86901; 88307; J2300; J2405; J2540; J2550; J2590; J3490

== ENCOUNTER 2017-04-21 13:58 | Emergency (ER) | payer BC, MEDICAID ==
--- NOTE | 2017-04-21 15:54 | ER Document Report ---
ED Hand/Wrist Injury - General Chief Complaint: Wrist Pain Stated Complaint: WRIST/HAND PAIN Time Seen by Provider: 04/21/17 15:02 Mode of Arrival: Ambulatory Information source: Patient Notes: 32-year-old female presents to ED for complaint of left thumb and wrist pain for about 3 months. She states 3 months ago she stepped on it and she woke up it was numb and hurting. She states it is progressively gotten more painful since then. She states she has a 6-week-old baby at home and it is extremely painful to pick the baby up. She states she took naproxen 880 mg last night or for the 220 mg. TRAVEL OUTSIDE OF THE [place] IN LAST 30 DAYS: No - HPI Injury to: Wrist - Left, Thumb Onset: Other - 3 months Timing: Waxing and waning Quality of pain: Sharp Severity: Moderate Pain Level: 3 Context: Other - Pain no known injury - Related Data Allergies/Adverse Reactions: No Known Allergies Allergy (Verified 04/21/17 13:59) Past Medical History - General Information source: Patient - Social History Smoking Status: Never Smoker Cigarette use (# per day): No Chew tobacco use (# tins/day): No Smoking Education Provided: No Frequency of alcohol use: Occasional Drug Abuse: None Family History: Arthritis, COPD, CVA, DM, Hyperlipidemia, Hypertension, Malignancy Patient has suicidal ideation: No Patient has homicidal ideation: No - Past Medical History Cardiac Medical History: Reports: Hx Hypertension Pulmonary Medical History: Reports: Hx Asthma - with Endocrine Medical History: Reports: Hx Diabetes Mellitus Type 2 - gestational Renal/ Medical History: Denies: Hx Peritoneal Dialysis Musculoskeltal Medical History: Reports Hx Musculoskeletal Trauma Traumatic Medical History: Reports: Hx Fractures Past Surgical History: Reports: Hx Orthopedic Surgery - right ankle - Immunizations Immunizations up to date: Yes Hx Diphtheria, Pertussis, Tetanus Vaccination: No - unknown Review of Systems - Review of Systems Constitutional: No symptoms reported EENT: No symptoms reported Cardiovascular: No symptoms reported Respiratory: No symptoms reported Gastrointestinal: No symptoms reported Genitourinary: No symptoms reported Female Genitourinary: No symptoms reported Musculoskeletal: Other - Left wrist and thumb pain for about 3 months Skin: No symptoms reported Hematologic/Lymphatic: No symptoms reported Neurological/Psychological: No symptoms reported Physical Exam - Vital signs Vitals: Temp Pulse Resp BP Pulse Ox 98.4 F 73 16 144/85 H 99 04/21/17 14:08 04/21/17 14:08 04/21/17 14:08 04/21/17 14:08 04/21/17 14:08 Interpretation: Normal - General General appearance: Appears well, Alert - HEENT Head: Normocephalic, Atraumatic Eyes: Normal Pupils: PERRL - Respiratory Respiratory status: No respiratory distress Chest status: Nontender Breath sounds: Normal Chest palpation: Normal - Cardiovascular Rhythm: Regular Heart sounds: Normal auscultation Murmur: No - Abdominal Inspection: Normal Distension: No distension Bowel sounds: Normal Tenderness: Nontender Organomegaly: No organomegaly - Back Back: Normal, Nontender - Extremities General upper extremity: Normal inspection, Nontender, Normal color, Normal ROM , Normal temperature General lower extremity: Normal inspection, Normal color, Normal temperature, Normal weight bearing. No: Lilliam's sign Wrist: Tender, Axial load of thumb pain, Limited ROM - Due to pain. No: Ecchymosis, Instability, Navicular tenderness Hand: Tender - To left thumb, No evidence of human bite, No evidence of FB. No : Abrasion, Deformity, Dislocation, Ecchymosis, Instability, Laceration, Nail injury - Neurological Neuro grossly intact: Yes Cognition: Normal Orientation: AAOx4 [place] Coma Scale Eye Opening: Spontaneous [place] Coma Scale Verbal: Oriented [place] Coma Scale Motor: Obeys Commands [place] Coma Scale Total: 15 Speech: Normal Motor strength normal: LUE, RUE, LLE, RLE Sensory: Normal - Psychological Associated symptoms: Normal affect, Normal mood - Skin Skin Temperature: Warm Skin Moisture: Dry Skin Color: Normal Course - Re-evaluation Re-evalutation: 04/21/17 16:55 Discussed x-rays with patient and written reports given the patient and instructed to follow-up with orthopedics. Patient given prescription for naproxen for her pain and discomfort. - Vital Signs Vital signs: Temp Pulse Resp BP Pulse Ox 97.7 F 62 18 133/87 H 98 04/21/17 16:45 04/21/17 16:45 04/21/17 16:45 04/21/17 16:45 04/21/17 16:45 - Diagnostic Test Radiology reviewed: Image reviewed, Reports reviewed Discharge - Discharge Clinical Impression: Left wrist pain, Arthritis of left wrist Condition: Stable Disposition: HOME, SELF-CARE Additional Instructions: Arthritis Your symptoms are due to arthritis. Arthritis is an inflammation of the joints. There are many types -- osteoarthritis (due to "wear and tear"), auto- immmune arthritis (such as rheumatoid, lupus, Gustavo's, and others), and crystal -induced arthritis (such as gout and pseudogout). The physician's examination, combined with laboratory tests, will determine the cause of your arthritis. All types of arthritis are treated with antiinflammatory medications. Other medication may be required for special types of arthritis, or if your problem does not respond to the antiinflammatory medicine. Local warmth may be helpful. Move the involved joints through the full range of motion daily. Mild exercise is usually still possible for most persons with arthritis (ask your physician). Swimming provides good exercise without damaging the joints. Contact the physician if you are worsening in any way. Anti-Inflammatory Medication You have received a prescription for an antiinflammatory agent. This is an excellent, safe drug for pain control. In addition, it has potent antiinflammatory effects which are beneficial, especially in the treatment of injuries, arthritis, or tendonitis. It's best to take this medicine with food. Persons with ulcer disease or allergy to aspirin should notify their physician of this before taking this drug. Take the medication exactly as prescribed. Don't take additional doses unless instructed to do so by your doctor. If you develop wheezing, shortness of breath, hives, faintness, stomach pain, vomiting, or dark black stools, return for re-evaluation at once. FOLLOW-UP CARE: If you have been referred to a physician for follow-up care, call the physician s office for an appointment as you were instructed or within the next two days. If you experience worsening or a significant change in your symptoms, notify the physician immediately or return to the Emergency Department at any time for re-evaluation. Prescriptions: Naproxen [Naprosyn] 500 mg PO BIDP PRN #20 tablet PRN Reason: Forms: Elevated Blood Pressure, Return to Work Referrals: DOMITILA HARDY DO [ACTIVE STAFF] - Follow up as needed
--- NOTE | 2017-04-21 16:03 | RADIOLOGY REPORT (SQ) ---
EXAM DESCRIPTION: WRIST LEFT 3 VIEWS; FINGER LEFT COMPLETED DATE/TIME: 04/21/2017 3:38 pm REASON FOR STUDY: pain to thumb and wrist getting worse COMPARISON: No previous left hand or wrist imaging NUMBER OF VIEWS: Three views left thumb Three views left wrist TECHNIQUE: AP, lateral, and oblique radiographic images acquired of the left wrist. AP, lateral, and oblique views of the left thumb LIMITATIONS: None. FINDINGS: LEFT THUMB: MINERALIZATION: Normal. BONES: There is a nonacute healed left thumb distal tuft fracture. Bones of the left thumb are other aguilar unremarkable. No significant joint space narrowing or widening at the 1st carpometacarpal joint , 1st metacarpophalangeal joint, or thumb interphalangeal joint. SOFT TISSUES: No soft tissue swelling. No foreign body. OTHER: No other significant finding. LEFT WRIST: MINERALIZATION: Normal. BONES: No acute fracture or dislocation. Normal carpal bone alignment. There is subcortical cyst f ormation along the lunatotriquetral articular surfaces of the lunate and triquetrum from osteoarthrit is. No 1st carpometacarpal joint space narrowing or bony spurring from arthritis SOFT TISSUES: No soft tissue swelling. No foreign body. OTHER: No other significant finding. IMPRESSION: No acute fracture or malalignment of the left thumb or wrist. Degenerative changes at the left wrist lunatotriquetral joint TECHNICAL DOCUMENTATION: JOB ID: [id number] [employer]- All Rights Reserved
[2017-04-21 16:52] VITALS: BP 133/87
== END 2017-04-21 16:45 | disposition home or self-care (01) ==
LOC: ER 13:58
DX: M19.032 Primary osteoarthritis, left wrist (principal); M79.645 Pain in left finger(s); M25.532 Pain in left wrist; I10 Essential (primary) hypertension
CPT/HCPCS: 99283

== ENCOUNTER 2017-10-28 14:18 | Emergency (ER) | payer BC ==
[2017-10-28 14:27] VITALS: BP 154/91
[2017-10-28] MEDS ORDERED: ONDANSETRON 4 MG TAB.RAPDIS PO ONE (15:14)
[2017-10-28] MEDS ORDERED: DICYCLOMINE HCL 20 MG TABLET PO ONE (15:14)
--- NOTE | 2017-10-28 15:16 | ER Document Report ---
ED Medical Screen (RME) - General Chief Complaint: Abdominal Pain Stated Complaint: STOMACH PAIN Time Seen by Provider: 10/28/17 15:07 Notes: RAPID MEDICAL EVALUATION DISCLOSURE I have seen this patient as part of a Rapid Medical Evaluation and, if applicable, placed any initially appropriate orders. The patient will be seen and fully evaluated, including a full history and physical exam, by a provider ( in Main ED or Fast Track) when a room becomes available. 32-year-old female here with complaints of epigastric abdominal pain/cramping nausea and vaginal bleeding ongoing for the past few days. She has been taking the medication she was prescribed at her last ED visit recently where she was diagnosed with a UTI. Per chart review, her urinalysis showed positive nitrites and hCG was negative. EXAM Mild to moderate epigastric TTP Minimal left/right upper quadrant TTP TRAVEL OUTSIDE OF THE [place] IN LAST 30 DAYS: No - Related Data Allergies/Adverse Reactions: No Known Allergies Allergy (Verified 10/25/17 13:00) Past Medical History - Past Medical History Cardiac Medical History: Reports: Hx Hypertension Pulmonary Medical History: Reports: Hx Asthma - with Endocrine Medical History: Reports: Hx Diabetes Mellitus Type 2 Renal/ Medical History: Denies: Hx Peritoneal Dialysis Musculoskeltal Medical History: Reports Hx Musculoskeletal Trauma Traumatic Medical History: Reports: Hx Fractures Past Surgical History: Reports: Hx Orthopedic Surgery - right ankle - Immunizations Immunizations up to date: Yes Hx Diphtheria, Pertussis, Tetanus Vaccination: No - unknown History of Influenza Vaccine for 01/2017 - 07/2017 Season: Refused Physical Exam - Vital signs Vitals: Temp Pulse Resp BP Pulse Ox 98.3 F 82 19 154/91 H 100 10/28/17 14:25 10/28/17 14:25 10/28/17 14:10/28/17 14:10/28/17 14:25 Course - Vital Signs Vital signs: Temp Pulse Resp BP Pulse Ox 98.3 F 82 19 154/91 H 100 10/28/17 14:25 10/28/17 14:25 10/28/17 14:25 10/28/17 14:25 10/28/17 14:25
== END 2017-10-28 15:31 | disposition left against medical advice (07) ==
LOC: ER 14:18
DX: R10.13 Epigastric pain (principal); R10.816 Epigastric abdominal tenderness; R10.811 Right upper quadrant abdominal tenderness; R10.812 Left upper quadrant abdominal tenderness; R11.0 Nausea; N93.9 Abnormal uterine and vaginal bleeding, unspecified; I10 Essential (primary) hypertension; E11.9 Type 2 diabetes mellitus without complications; Z87.440 Personal history of urinary (tract) infections; Z53.20 Procedure and treatment not carried out because of patient's decision for unspecified reasons
CPT/HCPCS: 99281

== ENCOUNTER 2018-10-21 08:08 | Emergency (ER) | payer BC ==
[2018-10-21 08:42] LABS: APPEARANCE,URINE CLEAR; BILIRUBIN,URINE NEGATIVE (NEGATIVE); COLOR,URINE YELLOW; GLUCOSE, URINE NEGATIVE (NEGATIVE); KETONES,URINE NEGATIVE (NEGATIVE); LEUKOCYTE ESTERASE,URINE NEGATIVE (NEGATIVE); NITRITE,URINE NEGATIVE (NEGATIVE); PROTEIN,URINE NEGATIVE (NEGATIVE); URINE SPECIFIC GRAVITY 1.017; UROBILINOGEN,URINE NEGATIVE mg/dL (<2.0)
[2018-10-21 09:45] VITALS: BP 153/90
--- NOTE | 2018-10-21 09:52 | ER Document Report ---
HPI - HPI Time Seen by Provider: 10/21/18 09:47 Pain Level: 4 Notes: Patient is a 33-year-old female who presents for recheck of resolution of urinary infection after being on clindamycin 3 weeks ago. Patient states that she was also treated for bacterial vaginosis at that time. She has had recent STD testing which was negative and is in a monogamous relationship. Patient states that she has not had any other vaginal discharge or odor. She has noticed some spotting. Patient states that she still does feel like she has some urinary frequency. She is otherwise eating and drinking without difficulty. No trouble with her bowel movements. Denies any headache, fever, URI, sore throat, chest pain, palpitations, syncope, cough, shortness of breath, wheeze, dyspnea, abdominal pain, nausea/vomiting/diarrhea, urinary retention, dysuria, hematuria, or rash. - ROS Systems Reviewed and Negative: Yes All other systems reviewed and negative - REPRODUCTIVE Reproductive: DENIES: : Past Medical History - Social History Smoking Status: Never Smoker Family History: Arthritis, COPD, CVA, DM, Hyperlipidemia, Hypertension, Malignancy - Past Medical History Cardiac Medical History: Reports: Hx Hypertension Pulmonary Medical History: Reports: Hx Asthma - with Endocrine Medical History: Reports: Hx Diabetes Mellitus Type 2 Renal/ Medical History: Denies: Hx Peritoneal Dialysis Musculoskeletal Medical History: Reports Hx Musculoskeletal Trauma Traumatic Medical History: Reports: Hx Fractures Past Surgical History: Reports: Hx Orthopedic Surgery - right ankle - Immunizations Immunizations up to date: Yes Hx Diphtheria, Pertussis, Tetanus Vaccination: No - unknown Vertical Provider Document - CONSTITUTIONAL Agree With Documented VS: Yes Notes: PHYSICAL EXAMINATION: GENERAL: Well-appearing, well-nourished and in no acute distress. LUNGS: Breath sounds clear to auscultation bilaterally and equal. No wheezes rales or rhonchi. HEART: Regular rate and rhythm without murmurs, rubs, gallops. ABDOMEN: Soft, nontender, nondistended abdomen. No guarding, no rebound. Normal bowel sounds present. No CVA tenderness bilaterally. : deferred. Pt declined. Musculoskeletal: FROM to passive/active. Strength 5+/5. Extremities: No cyanosis, clubbing, or edema b/l. Peripheral pulses 2+. Capillary refill less than 3 seconds. NEUROLOGICAL: Normal speech, normal gait. PSYCH: Normal mood, normal affect. SKIN: Warm, Dry, normal turgor, no rashes or lesions noted. - INFECTION CONTROL TRAVEL OUTSIDE OF THE [place] IN LAST 30 DAYS: No Course - Re-evaluation Re-evalutation: 10/21/18 10:08 Patient is an afebrile, well-hydrated, 33-year-old female who presents with dysuria, unspecified. Vitals are acceptable without significant tachycardia, tachypnea, or hypoxia. PE is otherwise unremarkable. Patient's abdomen is soft and nontender. She is able to tolerate p.o. without difficulty and is nontoxic- appearing. Urinalysis is unremarkable with culture pending. hCG negative. I did review with patient that I would like to perform a pelvic exam as well as obtaining swabs for further evaluation, which she declined. Patient states that she is going to go to the health department for this. She would like one Diflucan as she has been on antibiotics as precautionary for yeast infection which she has had before. Patient otherwise has not had any discharge or itching at this time. Low suspicion/risk for acute appendicitis, bowel obstruction, acute cholecystitis, acute cholangitis, perforated diverticulitis, incarcerated hernia, pancreatitis, perforated ulcer, peritonitis, sepsis, pelvic inflammatory disease, ectopic , tubo-ovarian abscess, ovarian torsion, or other systemic emergent condition at this time. Patient is aware that her condition can change from initial presentation and she needs to monitor symptoms closely and seek medical attention if any acute changes. Conservative measures otherwise for symptoms. Recheck with your PCM in 3 to 5 days. Return to the ED with any worsening/concerning symptoms otherwise as reviewed in discharge. Patient is in agreement. - Vital Signs Vital signs: Temp Pulse Resp BP Pulse Ox 98.2 F 49 L 16 153/90 H 98 10/21/18 08:17 10/21/18 08:17 10/21/18 08:17 10/21/18 08:17 10/21/18 08:17 - Laboratory Laboratory results interpreted by me: 10/21/18 08:16 Urine Blood MODERATE H Discharge - Discharge Clinical Impression: Dysuria Condition: Stable Disposition: HOME, SELF-CARE Additional Instructions: Maintain fluid intake Proper hygienic technique Keep the skin clean Safe sexual practices with condoms everytime Tylenol/ibuprofen as needed Check in with the health department this week for further testing F/u with your PCM/OBGYN in 3-5 days for a recheck Return to the ED with any development of BECK/fever, trouble with vision, eye redness, worsening pain, urethral discharge, urinary retention, blood in the urine, flank pain, abdominal pain, n/v, Chest Pain, shortness of breath, joint pains, trouble breathing, or any other worsening/concerning symptoms as needed otherwise. Forms: Elevated Blood Pressure [facility] - Follow up as needed
[2018-10-21] MEDS ORDERED: FLUCONAZOLE 100 MG TABLET PO ONE (10:05)
== END 2018-10-21 10:17 | disposition home or self-care (01) ==
LOC: ER 08:08
DX: R30.0 Dysuria (principal); Z87.440 Personal history of urinary (tract) infections; I10 Essential (primary) hypertension; J45.909 Unspecified asthma, uncomplicated; E11.9 Type 2 diabetes mellitus without complications
CPT/HCPCS: 81001; 81025; 87086; 99284

== ENCOUNTER → 2019-02-25 | Outpatient (CLI) | payer BC ==
[2019-02-25 12:28] LABS: BACTERIA (WET MOUNT) 4+ BACTERIA SEEN; EPITHELIALS (WET MOUNT) 4+ EPITHELIALS SEEN; RBCS (WET MOUNT) RARE RBCS SEEN; T.VAGINALIS (WET MOUNT) NO TRICHOMONAS SEEN; WBCS (WET MOUNT) 1+ WBCS SEEN; YEAST (WET MOUNT) NO YEAST SEEN
== END ==
LOC: LAB 12:23
PROVIDERS: ATTEND Nurse Practitioner Family
DX: N89.8 Other specified noninflammatory disorders of vagina (principal); R30.0 Dysuria
CPT/HCPCS: 87086; 87210

== ENCOUNTER 2019-05-07 21:53 | Emergency (ER) | payer OTHER, BC ==
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
[2019-05-08 00:09] LABS: APPEARANCE,URINE CLEAR; BILIRUBIN,URINE NEGATIVE (NEGATIVE); COLOR,URINE YELLOW; GLUCOSE, URINE NEGATIVE (NEGATIVE); KETONES,URINE NEGATIVE (NEGATIVE); PROTEIN,URINE NEGATIVE (NEGATIVE); URINE SPECIFIC GRAVITY 1.027
[2019-05-08 00:10] LABS: ABSOLUTE EOSINOPHILS # (AUTO) 0.2 10^3/uL (0.0-0.6); ABSOLUTE LYMPHOCYTES (AUTO) 3.3 10^3/uL (0.5-4.7); ABSOLUTE MONOCYTES (AUTO) 0.6 10^3/uL (0.1-1.4); ABSOLUTE NEUT (AUTO) 5.7 10^3/uL (1.7-8.2); BASOPHILS % (AUTO) 0.2 % (0-2); EOSINOPHILS % (AUTO) 2.3 % (0-6); HEMATOCRIT 39.6 % (36.0-47.0); HEMOGLOBIN 13.1 g/dL (12.0-15.5); LYMPHOCYTES % (AUTO) 33.4 % (13-45); MEAN CORPUSCULAR HEMOGLOBIN 29.5 pg (27.0-33.4); MEAN CORPUSCULAR HGB CONC 33.1 g/dL (32.0-36.0); MEAN CORPUSCULAR VOLUME 89 fl (80-97); MONOCYTES % (AUTO) 6.2 % (3-13); PLATELET COUNT 270 10^3/uL (150-450); RED BLOOD COUNT 4.44 10^6/uL (3.72-5.28); RED CELL DISTRIBUTION WIDTH 14.4 % (11.5-14.0); SEGMENTED NEUTROPHILS % (AUTO) 57.9 % (42-78); TOTAL CELLS COUNTED % (AUTO) 100 %; WHITE BLOOD COUNT 9.8 10^3/uL (4.0-10.5)
[2019-05-08 00:27] LABS: ALBUMIN 3.9 g/dL (3.5-5.0); ALKALINE PHOSPHATASE 67 U/L (38-126); ANION GAP 9 (5-19); ASPARTATE AMINO TRANSFERASE 19 U/L (14-36); BILIRUBIN,DIRECT 0.2 mg/dL (0.0-0.4); BILIRUBIN,TOTAL 0.3 mg/dL (0.2-1.3); BLOOD UREA NITROGEN 19 mg/dL (7-20); CALCIUM 8.8 mg/dL (8.4-10.2); CARBON DIOXIDE 28 mmol/L (22-30); CHLORIDE 101 mmol/L (98-107); GLUCOSE 109 mg/dL (75-110); POTASSIUM 4.6 mmol/L (3.6-5.0); TOTAL PROTEIN 7.8 g/dL (6.3-8.2)
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
[2019-05-08 02:56] VITALS: BP 147/93
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
== END 2019-05-08 03:30 | disposition home or self-care (01) ==
LOC: ER 21:53
DX: S10.93XA Contusion of unspecified part of neck, initial encounter (principal); S13.4XXA Sprain of ligaments of cervical spine, initial encounter; M79.10 Myalgia, unspecified site; R51 Headache; R10.2 Pelvic and perineal pain; V43.52XA Car driver injured in collision with other type car in traffic accident, initial encounter; I10 Essential (primary) hypertension; E11.9 Type 2 diabetes mellitus without complications
CPT/HCPCS: 36415; 80053; 81001; 83690; 84703; 85025; 99283

== ENCOUNTER → 2019-07-09 | Outpatient (CLI) | payer BC ==
[2019-07-09 14:37] LABS: T.VAGINALIS (WET MOUNT) NO TRICHOMONAS SEEN; YEAST (WET MOUNT) NO YEAST SEEN
[2019-07-09 14:38] LABS: BACTERIA (WET MOUNT) 3+ BACTERIA SEEN; EPITHELIALS (WET MOUNT) 4+ EPITHELIALS SEEN; WBCS (WET MOUNT) RARE WBCS SEEN
== END ==
LOC: LAB 14:21
PROVIDERS: ATTEND Nurse Practitioner Family
DX: N89.8 Other specified noninflammatory disorders of vagina (principal)
CPT/HCPCS: 87210

== ENCOUNTER 2020-05-05 19:55 | Outpatient (CLI) | payer BC, MEDICAID ==
[2020-05-05 20:25] LABS: APPEARANCE,URINE CLEAR; BILIRUBIN,URINE NEGATIVE (NEGATIVE); COLOR,URINE YELLOW; GLUCOSE, URINE NEGATIVE (NEGATIVE); KETONES,URINE 20 mg/dL (NEGATIVE); LEUKOCYTE ESTERASE,URINE NEGATIVE (NEGATIVE); NITRITE,URINE NEGATIVE (NEGATIVE); PROTEIN,URINE NEGATIVE (NEGATIVE); URINE SPECIFIC GRAVITY 1.008; UROBILINOGEN,URINE NEGATIVE mg/dL (<2.0)
[2020-05-05] MEDS ORDERED: RINGERS SOLUTION,LACTATED 500 ML IV ONE (20:43)
[2020-05-05] MEDS ORDERED: ACETAMINOPHEN 325 MG TABLET PO ONE (20:44)
[2020-05-05] MEDS ORDERED: PROMETHAZINE HCL INJ 25 MG/1 ML VIAL IV ONE (20:44)
[2020-05-05] MEDS ORDERED: ACETAMINOPHEN 325 MG TABLET ONE (20:45)
[2020-05-05] MEDS ORDERED: PROMETHAZINE HCL INJ 25 MG/1 ML VIAL ONE (20:45)
[2020-05-05 20:53] LABS: URINE AMPHETAMINES SCREEN NEGATIVE; URINE BARBITURATES SCREEN NEGATIVE; URINE BENZODIAZEPINES SCREEN NEGATIVE; URINE COCAINE SCREEN NEGATIVE; URINE MARIJUANA (THC) SCREEN NEGATIVE; URINE METHADONE SCREEN NEGATIVE; URINE PHENCYCLIDINE SCREEN NEGATIVE
--- NOTE | 2020-05-05 21:28 | L&D Progress Notes ---
PROGRESS NOTES Datetime Report Generated by CPN: 05/05/2020 21:28 PROGRESS NOTE Comment: Pt is dehydrated but feeling better now. Closed cervix. She was offered IV fluids but declines. She plans to drink water on her own. Precautions given. LAST VAGINAL EXAM-NURSING Nursing Exam Dilitation: closed Nursing Exam Effacement: thick Nursing Exam Station: high SIGNATURE SIGNATURE: [id number] Signature: with User ID: [email or web address]
== END 2020-05-05 21:34 | disposition home or self-care (01) ==
LOC: LC 19:55
PROVIDERS: ATTEND Obstetrics & Gynecology
DX: O47.03 False labor before 37 completed weeks of gestation, third trimester (principal); O09.523 Supervision of elderly multigravida, third trimester; O99.891 Other specified diseases and conditions complicating pregnancy; M54.9 Dorsalgia, unspecified; R10.9 Unspecified abdominal pain; Z3A.29 29 weeks gestation of pregnancy
CPT/HCPCS: 80307; 81001; J2550